=== PATIENT | female | born 1930 | race Caucasian/White ===

== ENCOUNTER 2017-07-29 19:34 | Inpatient (IN) | payer MEDICARE ==
[2017-07-29] MEDS ORDERED: Bacitracin Zinc 1 Packet ONE (21:53)
[2017-07-29] MEDS ORDERED: Acetaminophen 500 MG TAB ONE (21:53)
[2017-07-30] MEDS ORDERED: Ondansetron ODT 4 MG TAB SL PRN (00:15)
[2017-07-30] MEDS ORDERED: Acetaminophen 325 MG TAB PO PRN (00:15)
[2017-07-30] MEDS ORDERED: Ondansetron HCl/PF 4 MG/2 ML Vial IVP PRN (00:15)
[2017-07-30 01:20] VITALS: BMI 28.7
[2017-07-30] MEDS: Enoxaparin Sodium 30 MG/0.3 ML SYRINGE SC SCH (11:04)
--- NOTE | 2017-07-30 11:58 | ULT ---
RIGHT GOING ULTRASOUND INCLUDING VASCULAR DUPLEX WITH COLOR AND SPECTRAL DOPPLER IMAGING: HISTORY: An 86-year-old female, to evaluate for pseudoaneurysm. FINDINGS: The right groin is evaluated. There is no evidence for pseudoaneurysm. There is no evidence for si gnificant hematoma. IMPRESSION: No right groin pseudoaneurysm. POS: EDITH
[2017-07-30] MEDS ORDERED: Aspirin 81 mg Enteric Coated Tablet PO SCH (12:45)
[2017-07-30] MEDS ORDERED: Gabapentin 300 MG CAP PO SCH (13:00)
[2017-07-30] MEDS ORDERED: Levothyroxine Sodium 75 MCG TAB PO SCH (13:00)
[2017-07-30] MEDS ORDERED: Citalopram 20 MG TAB PO SCH (13:00)
[2017-07-30] MEDS ORDERED: Furosemide 20 MG TAB PO SCH (13:00)
[2017-07-30] MEDS ORDERED: Valsartan 80 MG TAB PO SCH (13:00)
[2017-07-30] MEDS ORDERED: Carvedilol 6.25 MG TAB PO SCH (13:00)
[2017-07-30] MEDS ORDERED: Clopidogrel Bisulfate 75 MG TAB PO SCH (13:00)
[2017-07-30 13:31] LABS: #Basophils 0.1 thou/uL (0.0-0.2); #Eosinphils 0.5 thou/uL (0.0-0.7); #Lymphocytes 1.8 thou/uL (1.20-3.40); #Monocytes 1.2 thou/uL (0.11-0.59); #Neutrophils 7.1 thou/uL (1.40-6.50); %Eosinophils 4.6 % (0.0-10.0); %Monocytes 11.4 % (0.0-10.0); Hematocrit 35.5 % (36.0-47.0); Mean Platelet Volume 6.8 fL (7.4-10.4); Red Blood Cell (RBC) Count 3.87 mill/uL (4.20-5.40); White Blood Cell (WBC) Count 10.7 thou/uL (4.8-10.8)
[2017-07-30 14:05] LABS: ALT (SGPT) 14 U/L (8-55); AST (SGOT) 19 U/L (5-34); Alkaline Phosphatase 72 U/L (40-150); Anion Gap 13 mmol/L (10-20); BUN (Urea Nitrogen) 23 mg/dL (9.8-20.1); Bilirubin, Total 0.5 mg/dL (0.2-1.2); Calc. Creatinine Clearance 43 mL/min (70-130); Calcium 9.4 mg/dL (7.8-10.44); Carbon Dioxide 26 mmol/L (23-31); Chloride 98 mmol/L (98-107); Estimated GFR-MDRD 50; Globulin 3.5 g/dL (2.4-3.5); Protein, Total 7.1 g/dL (6.0-8.3)
--- NOTE | 2017-07-30 14:58 | PRG ---
DATE OF SERVICE: 07/30/2017 SUBJECTIVE: Lyssa Ramirez is a very sweet patient I have been following for asthma. She is laurie ntified as having significant peripheral vascular disease. She subsequently has been admitted to the telemetry unit. She has a poorly healing ulcer on her heel. PHYSICAL EXAMINATION: VITAL SIGNS: She is afebrile, heart rate 72, respiratory rate is 18, oximetry is 95, blood pressure is fluctuating between 160 systolic and 193 systolic today. LUNGS: Completely clear. CARDIOVASCULAR: Regular rhythm. ABDOMEN: Soft. IMPRESSION: Severe peripheral vascular disease. I will plan to discuss the above with Dr. Richey. The addition of Trental, even though an old treatment may be helpful with her microvascular circula tion ? She needs to be on inhaled steroids while she is here. I will be happy to follow along with the ot er physicians caring for him.
[2017-07-30] MEDS: Atorvastatin Calcium 20 MG TAB PO SCH (20:14)
[2017-07-30] MEDS: Amitriptyline HCl 25 MG TAB PO SCH (20:14)
[2017-07-30] MEDS: Budesonide 0.5 MG/2 ML NEB INH SCH (20:15)
[2017-07-30] MEDS: Valsartan 80 MG TAB PO SCH (20:15)
[2017-07-30] MEDS: Gabapentin 300 MG CAP PO SCH (20:15)
[2017-07-30] MEDS: Carvedilol 6.25 MG TAB PO SCH (20:19)
--- NOTE | 2017-07-30 22:15 | HP ---
DATE OF ADMISSION: 07/30/2017 REASON FOR ADMISSION: Necrotic left toe nonhealing ulcer and PVD. PRIMARY AGRICULTURAL AND FORESTRY SUPERVISOR: Christina Garay M.D. HISTORY OF PRESENT ILLNESS: Ms. Ramirez is a very pleasant 86-year-old black female who comes to the hospital for left leg pain. She was evaluated in the ER and was found to have a new ischemic l esion on her left second toe, so she was admitted for further evaluation and care. She recently had an intervention performed on her lower left common femoral artery. She has severe peripheral vascu lar disease in left leg. She has an occluded SFA proximally at the level of the hip and it reconsti tutes from just very small collateral circulation all the way down to the foot with just one vessel runoff. We actually intervened on her common femoral, we did laser atherectomy and balloon angiopla sty with very good results, it went from 80% to 90% down to about 20%. She had a very calcified les ion, this was about a few days ago and she did very well. She had no complications and this is a ne w finding since. She states that her wound is actually healing better. Since we did the procedure, she has been going to wound care and is much better. PAST MEDICAL HISTORY: 1. History of nonischemic cardiomyopathy, EF was at 20% to 25% and at one point, she received an AI CD and eventually has improved to about 50% to 55% last evaluation on 12/2016. 2. Chronic diastolic heart failure. 3. Coronary artery disease with stent placement in the past. 4. Hyperlipidemia. 5. Hypertension. 6. History of peripheral vascular disease. 7. History of bypass in 1993 x6. 8. Appendectomy. 9. Hysterectomy. 10. Osteoarthritis. 11. Hypothyroidism. OUTPATIENT MEDICATIONS: Reviewed. 1. Lasix 20 mg. 2. Lipitor 20 mg. 3. Amitriptyline. 4. Gabapentin. 5. Valsartan 80 mg p.o. b.i.d. 6. Omeprazole. 7. Levothyroxine 75 mcg a day. 8. Imdur 60 mg a day. 9. Celexa 40 mg a day. 10. Coreg 6.25 mg b.i.d. 11. Aspirin 81 a day. 12. Plavix 75 mg a day. ALLERGIES: No known drug allergies. SOCIAL HISTORY: No alcohol, tobacco or drugs. FAMILY HISTORY: Noncontributory. REVIEW OF SYSTEMS: Twelve-point review of systems was done and is all negative unless stated in the history of present illness. PHYSICAL EXAMINATION: VITAL SIGNS: Temperature 98.4, pulse 72, respiratory rate 18, satting 96% on room air, and blood pr essure 193/78. GENERAL: Awake, alert, oriented x3, in no distress. HEENT: Normocephalic, atraumatic. NECK: Supple. LUNGS: Clear. CARDIOVASCULAR: S1, S2, no S3 or S4. ABDOMEN: Soft. Positive bowel sounds. EXTREMITIES: No edema. SKIN: Cold and dry with delayed capillary refill, cannot feel any pulses on the left leg, but this is similar to what it felt like a week ago before the procedure. There is a small necrotic area und er the nail of the hallux on the left, which is a new spot. On the second toe on the same leg on th e left, there is a necrotic spot that was there before the procedure. This one has not progressed. ASSESSMENT AND PLAN: 1. Severe peripheral vascular disease. 2. Nonhealing ulcer. 3. New ischemic area on the foot on the first great toe. PLAN: 1. We will observe overnight if her toe looks the same as it did this morning. We will plan on sen ding her home tomorrow. I discussed the case also with Dr. Escobar and we will start Trental today to see if this helps. Otherwise, I reviewed the films with Dr. Luna and he agrees with her very few surgical options for her vascular disease and hopefully she will be able to heal enough to not lose her foot as amputation may be deadly for her as there is may not be enough blood flow to heal any rodrigues rgical wound. 2. We will continue home medications. 3. FULL CODE. 4. Lovenox subcu for deep venous thrombosis prophylaxis. We will continue to follow daily. Most likely home tomorrow.
[2017-07-31 04:59] LABS: #Basophils 0.1 thou/uL (0.0-0.2); #Eosinphils 0.5 thou/uL (0.0-0.7); #Monocytes 1.1 thou/uL (0.11-0.59); #Neutrophils 5.6 thou/uL (1.40-6.50); %Basophils 1.1 % (0.0-1.0); %Eosinophils 5.4 % (0.0-10.0); %Lymphocytes 21.2 % (21.0-51.0); %Monocytes 11.4 % (0.0-10.0); Mean Platelet Volume 6.8 fL (7.4-10.4); Red Blood Cell (RBC) Count 3.68 mill/uL (4.20-5.40); White Blood Cell (WBC) Count 9.2 thou/uL (4.8-10.8)
[2017-07-31 05:20] LABS: Anion Gap 11 mmol/L (10-20); BUN (Urea Nitrogen) 21 mg/dL (9.8-20.1); Calc. Creatinine Clearance 38 mL/min (70-130); Calcium 9.3 mg/dL (7.8-10.44); Carbon Dioxide 28 mmol/L (23-31); Chloride 98 mmol/L (98-107); Estimated GFR-MDRD 44
[2017-07-31] MEDS: Levothyroxine Sodium 75 MCG TAB PO SCH (05:45)
[2017-07-31] MEDS ORDERED: Levothyroxine Sodium 75 MCG TAB PO SCH (06:00)
[2017-07-31] MEDS: Budesonide 0.5 MG/2 ML NEB INH SCH ×2 (08:44→19:06)
--- NOTE | 2017-07-31 16:25 | PRG ---
DATE OF SERVICE: 07/31/2017 SUBJECTIVE: Ms. Ramirez is doing well. She is tentatively scheduled to go home today. OBJECTIVE: VITAL SIGNS: Blood pressure high today is 160/70, she is 143/65, she is afebrile, heart rate 67, res piratory rate 16, oximetry is 94-97. LUNGS: Clear. She is not wheezing. IMPRESSION: 1. Asthma, clinically stable. 2. Peripheral vascular disease. To be followed with Dr. Richey. I will be happy to follow her with her as an outpatient.
[2017-07-31] MEDS ORDERED: traMADol HCl 50 MG TAB PO PRN (17:27)
[2017-07-31] MEDS ORDERED: Acetaminophen 325 MG TAB PO PRN (17:27)
[2017-07-31] MEDS ORDERED: Fentanyl 100 MCG/2 ML VIAL SLOW IVP SCH (17:30)
--- NOTE | 2017-07-31 17:31 | PDOC.CTH ---
Cardiology Progress Note - Subjective She is doing well. She continues to have leg pain at rest but is not changed from what it has been in the last few months. She usually uses ibuprofen at home but has not received any here. - Objective Vital Signs Temp Pulse Resp BP Pulse Ox 07/31/17 08:44 70 20 94 L 07/31/17 08:00 97.5 F L 67 16 160/70 H 97 Admit Weight 157 lb Weight 157 lb 07/30/17 07/31/17 08/01/17 06:59 06:59 06:59 Intake Total 610 Output Total 2100 Balance -1490 - Physical Examination General/Neuro: alert & oriented x3, NAD Neck: no JVD present Lungs: CTA, unlabored respirations Heart: RRR Abdomen: NT/ND Extremities: other: (no edema) - Telemetry Telemetry Rhythm: NSR, a paced. - Labs Result Diagrams: 07/31/17 04:20 07/31/17 04:20 - Assessment/Plan 1. Ischemis right leg 2. Severe PVD, no good options to revascularize. 3. Non healing ulcer on left heel. 4. S/P AICD 5. Chronic diastolic dysfunction. 6. Hx of ischemic CM EF normal now at 50-55% PLAN: - Pain control with IV fentanyl and hopefully tramadol and acetaminophen will suffice. - No progression of her necrosis around her left great toe, looks the same as yesterday. - Will give a small fluid bolus as her creatinine did increase overnight with diuresis. - Likely home tomorrow.
[2017-07-31] MEDS ORDERED: Sodium Chloride 0.9% 1,000 ML IV SCH (17:45)
[2017-07-31] MEDS: Valsartan 80 MG TAB PO SCH ×2 (20:59→23:33)
[2017-07-31] MEDS: Atorvastatin Calcium 20 MG TAB PO SCH (21:00)
[2017-07-31] MEDS: Amitriptyline HCl 25 MG TAB PO SCH (21:00)
[2017-07-31] MEDS: Aspirin 81 mg Enteric Coated Tablet PO SCH (21:05)
[2017-07-31] MEDS: Enoxaparin Sodium 30 MG/0.3 ML SYRINGE SC SCH (21:06)
[2017-07-31] MEDS: Citalopram 20 MG TAB PO SCH (21:06)
[2017-07-31] MEDS: Clopidogrel Bisulfate 75 MG TAB PO SCH (21:06)
[2017-07-31] MEDS: Furosemide 20 MG TAB PO SCH (21:07)
[2017-07-31] MEDS: Gabapentin 300 MG CAP PO SCH ×2 (21:08→21:09)
[2017-07-31] MEDS: Carvedilol 6.25 MG TAB PO SCH ×2 (21:08→21:09)
[2017-08-01] MEDS: Levothyroxine Sodium 75 MCG TAB PO SCH (06:07)
[2017-08-01] MEDS: Budesonide 0.5 MG/2 ML NEB INH SCH (07:49)
[2017-08-01] MEDS ORDERED: Furosemide 40 MG/4 ML VIAL SLOW IVP SCH (08:30)
--- NOTE | 2017-08-01 08:41 | PRG ---
DATE OF SERVICE: 08/01/2017 HISTORY: Ms. Ramirez is doing okay this morning. She says she is not short of breath, but looks like her respiratory rate is a little high. She looks mildly dyspneic. PHYSICAL EXAMINATION: VITAL SIGNS: Her blood pressure is elevated, it was 180/75 followed by 164/71, pulse 66. LUNGS: Mild wheezing, expiratory. CARDIAC: Normal S1 and S2. ABDOMEN: Soft, nontender. EXTREMITIES: She has vascular insufficiency as outlined above. ASSESSMENT: 1. Diastolic heart failure, looks volume overloaded. 2. Hypertension. PLAN: 1. Stop intravenous fluid. 2. Give her a single dose of intravenous Lasix. 3. Probably home later today. 4. Valsartan dose was increased.
[2017-08-01] MEDS: Aspirin 81 mg Enteric Coated Tablet PO SCH (09:28)
[2017-08-01] MEDS: Gabapentin 300 MG CAP PO SCH (09:28)
[2017-08-01] MEDS: Citalopram 20 MG TAB PO SCH (09:28)
[2017-08-01] MEDS: Furosemide 20 MG TAB PO SCH (09:29)
[2017-08-01] MEDS: Carvedilol 6.25 MG TAB PO SCH (09:29)
[2017-08-01] MEDS: Clopidogrel Bisulfate 75 MG TAB PO SCH (09:29)
[2017-08-01] MEDS: Valsartan 80 MG TAB PO SCH (09:29)
[2017-08-01] MEDS: Enoxaparin Sodium 30 MG/0.3 ML SYRINGE SC SCH (09:30)
--- NOTE | 2017-08-01 10:15 | PRG ---
DATE OF SERVICE: 08/01/2017 Ms. Ramirez is scheduled to go home today. She has no new complaints. She has no new wound issue s. Her vital signs have been stable. Her blood pressures are still intermittently mildly elevated up to 183/75, last night 146/68, this morning 164/71. Lungs remained clear. Asthma is not active. She i s stable for discharge.
[2017-08-01 10:44] LABS: Anion Gap 9 mmol/L (10-20); BUN (Urea Nitrogen) 23 mg/dL (9.8-20.1); Calc. Creatinine Clearance 41 mL/min (70-130); Calcium 9.2 mg/dL (7.8-10.44); Carbon Dioxide 27 mmol/L (23-31); Chloride 102 mmol/L (98-107); Estimated GFR-MDRD 48
[2017-08-01 13:10] VITALS: BP 104/53; TEMP 97.6
--- NOTE | 2017-08-01 15:17 | DIS ---
DATE OF ADMISSION: 07/30/2017 DATE OF DISCHARGE: 08/01/2017 DISCHARGING PHYSICIAN: Terry Richey M.D. PRIMARY DIAGNOSES: 1. Ischemic right leg/first and second toes. 2. Nonhealing ulcer. 3. Severe peripheral vascular disease. 4. Status post automated implantable cardioverter-defibrillator. 5. Diastolic heart failure. SUMMARY: Ms. Ramirez is a very pleasant 86-year-old white female, who comes to the hospital for f oot pain. She had intervention on her common femoral. She had balloon angioplasty. She has an occl uded SFA with just collateral flow down the leg. She came in as she noticed a purple spot on her fir st toe on the left leg where the intervention was done. She also has a nonhealing ulcer on her heel in that leg. The ulcer actually is healing better since the procedure was done a week ago and this n ew spot on the big toe is new. She has a chronic spot on the second toe, which is the same as it has been. We started Trental. She received a few doses of Lasix and had to give a little bit of fluid back. Her creatinine is much better and she will be discharged home today in a stable condition. We called wound care as well and they have been taking care of the wound. She has no complaints. Her pain is actually very well controlled with the tramadol and the Tylenol. DISCHARGE MEDICATIONS: 1. Tylenol p.r.n. 2. Amitriptyline. 3. Aspirin 81 daily. 4. Atorvastatin 20 mg at bedtime. 5. Pulmicort inhalation. 6. Carvedilol 6.25 b.i.d. 7. Celexa. 8. Plavix. 9. Lasix 20 mg a day and p.r.n. 40 mg for swelling and edema. 10. Gabapentin 600 mg p.o. b.i.d. 11. Imdur 60 mg a day. 12. Levothyroxine 75 mcg a day. 13. Protonix 40 mg a day. 14. Valsartan 160 mg b.i.d. NEW MEDICATIONS: 1. Trental/pentoxifylline 400 mg p.o. t.i.d. 2. Tramadol q.6 hours p.r.n. pain. FOLLOWUP APPOINTMENTS: Dr. Garay as previously scheduled. She will send me pictures of her toe to make sure that the ischemia is not getting worse. There are very few surgical options. I discussed the case with Dr. Luna as well and there is no good surgical option. She may need amputation if the ischemia continues and she may not be a good candidate for t his, as she probably will not heal and it may be too much for her. I spoke with her daughter about t his, and instead of going in the amputation route, she may just want to do hospice care at that point , but we will make decisions depending on clinical evolution. Thirty minutes were spent at bedside on discharge.
== END 2017-08-01 15:52 | disposition home or self-care (01) | DRG 300 ==
LOC: ERS 19:34 → 2NO 20:48
PROVIDERS: ADMIT Internal Medicine Cardiovascular Disease; ATTEND Internal Medicine Cardiovascular Disease
DX: I70.234 Atherosclerosis of native arteries of right leg with ulceration of heel and midfoot (principal); I50.32 Chronic diastolic (congestive) heart failure; I42.9 Cardiomyopathy, unspecified; I11.0 Hypertensive heart disease with heart failure; I70.235 Atherosclerosis of native arteries of right leg with ulceration of other part of foot; I25.10 Atherosclerotic heart disease of native coronary artery without angina pectoris; Z95.810 Presence of automatic (implantable) cardiac defibrillator; E03.9 Hypothyroidism, unspecified; E78.5 Hyperlipidemia, unspecified; J45.909 Unspecified asthma, uncomplicated; M19.90 Unspecified osteoarthritis, unspecified site
CPT/HCPCS: 36415; 76700; 80048; 80053; 83880; 85025; 94640; A4216; J1650; J1940; J7620; J7626

== ENCOUNTER 2017-08-16 12:33 | Inpatient (IN) | payer MEDICARE ==
[2017-08-16] MEDS ORDERED: CEFAZOLIN/Water 2 GM/20 ML SYRINGE ONE (13:29)
[2017-08-16] MEDS ORDERED: Albuterol Sulfate 2.5 mg/3 ml Neb NEB SCH (13:45)
[2017-08-16 13:47] LABS: #Basophils 0.1 thou/uL (0.0-0.2); #Eosinphils 0.4 thou/uL (0.0-0.7); #Lymphocytes 1.6 thou/uL (1.20-3.40); #Monocytes 0.9 thou/uL (0.11-0.59); #Neutrophils 7.6 thou/uL (1.40-6.50); %Basophils 0.7 % (0.0-1.0); %Eosinophils 3.6 % (0.0-10.0); %Lymphocytes 15.4 % (21.0-51.0); %Monocytes 8.9 % (0.0-10.0); Hematocrit 33.2 % (36.0-47.0); Mean Platelet Volume 6.4 fL (7.4-10.4); Red Blood Cell (RBC) Count 3.69 mill/uL (4.20-5.40); White Blood Cell (WBC) Count 10.6 thou/uL (4.8-10.8)
[2017-08-16] MEDS ORDERED: Albuterol Sulfate 2.5 mg/3 ml Neb ONE (13:48)
[2017-08-16 13:53] LABS: Prothrombin Time 14.2 SEC (12.0-14.7)
[2017-08-16 14:04] LABS: Anion Gap 13 mmol/L (10-20); BUN (Urea Nitrogen) 19 mg/dL (9.8-20.1); Calc. Creatinine Clearance 42 mL/min (70-130); Carbon Dioxide 28 mmol/L (23-31); Chloride 96 mmol/L (98-107); Estimated GFR-MDRD 49
[2017-08-16] MEDS ORDERED: Midazolam HCl 2 mg/2 ml Vial ONE (14:19)
[2017-08-16] MEDS ORDERED: Fentanyl 100 MCG/2 ML VIAL ONE ×2 (14:19→15:04)
[2017-08-16] MEDS ORDERED: Dexamethasone 4 mg/ml Vial ONE (14:20)
[2017-08-16] MEDS ORDERED: Ondansetron HCl/PF 4 MG/2 ML Vial ONE (15:12)
[2017-08-16] MEDS ORDERED: PHENYLEPHRINE-NS 100 MCG/ML 10 ML SYRINGE ONE (15:12)
[2017-08-16] MEDS ORDERED: Propofol 200 MG/20 ML VIAL ONE (15:12)
[2017-08-16] MEDS ORDERED: ePHEDrine/0.9% NaCl/PF SYRINGE 50 mg/10 ml ONE (15:12)
[2017-08-16] MEDS ORDERED: Lidocaine 1% PF 5 ML VIAL ONE (15:12)
[2017-08-16] MEDS ORDERED: Zolpidem Tartrate 5 MG TAB PO PRN (15:22)
[2017-08-16] MEDS ORDERED: Ropivacaine HCl/PF 250 ML in Premix Bag 1 BAG NERVE BLCK SCH (15:22)
[2017-08-16] MEDS ORDERED: HYDROcodone/Acetaminophen 5/325 mg Tablet PO PRN ×2 (15:22)
[2017-08-16] MEDS ORDERED: Promethazine HCl 25 MG/ML VIAL IM PRN ×2 (15:22→17:26)
[2017-08-16] MEDS ORDERED: Ondansetron HCl/PF 4 MG/2 ML Vial IVP PRN ×3 (15:22→17:45)
[2017-08-16] MEDS ORDERED: Ketorolac Tromethamine 30 MG/ML VIAL IVP PRN (15:22)
[2017-08-16] MEDS ORDERED: traMADol HCl 50 MG TAB PO PRN ×3 (15:22→17:45)
[2017-08-16] MEDS ORDERED: Fentanyl 100 MCG/2 ML VIAL SLOW IVP PRN (15:24)
[2017-08-16] MEDS ORDERED: Ropivacaine 0.5% HCl/PF (150 MG/30 ML VIAL) ONE (15:57)
[2017-08-16] MEDS ORDERED: Ropivacaine 0.2% HCl/PF (40 MG/20 ML VIAL) ONE (15:57)
[2017-08-16] MEDS ORDERED: Promethazine HCl 25 MG/ML VIAL SLOW IVP PRN (17:26)
[2017-08-16] MEDS ORDERED: Morphine Sulfate 2 MG/ML SYRINGE SLOW IVP PRN (17:26)
[2017-08-16] MEDS ORDERED: Meperidine HCl/PF 25 MG/ML VIAL SLOW IVP PRN (17:26)
[2017-08-16] MEDS ORDERED: Milk Of Magnesia 30 ML UDCUP PO PRN (17:45)
--- NOTE | 2017-08-16 19:02 | OP ---
DATE OF OPERATION: 08/16/2017 PREOPERATIVE DIAGNOSIS: Ischemic rest pain of the left leg with nonreconstructable peripheral vascul ar disease. POSTOPERATIVE DIAGNOSIS: Ischemic rest pain of the left leg with nonreconstructable peripheral vascu lar disease. PROCEDURE: Left evbqp-eah-aryc amputation. SURGEON: Haja Burkett M.D. ANESTHESIA: General endotracheal. ESTIMATED BLOOD LOSS: 200 mL PROCEDURE IN DETAIL: After consent was obtained, the patient was brought to the operating room and p laced in the supine position on the operating room table. Appropriate anesthetic monitor was placed and general endotracheal anesthesia induced. Left leg was prepped and draped in usual sterile fashio n. Fish mouth incision was marked on the skin for an above knee amputation. Skin incision was made and dissection through the fascia obtained with electrocautery. Her previous femoral popliteal bypas s graft was ligated and oversewn proximally with 3-0 Prolene suture. Superficial femoral artery and popliteal vein were divided between ties. The remainder of the amputation was completed with electro cautery. The femur was divided with a Gigli saw. Wound was copiously irrigated. Hemostasis was ens ured. Femoral nerve was stripped and tied proximally. Fascia was reapproximated with 0 Vicryl sutur e. A running #2 layer was then placed in the subcu and skin closed with clips. A fluff dressing was applied. The patient tolerated the procedure well, was awakened, extubated, and transferred to cesar very room in stable condition.
[2017-08-16] MEDS: Amitriptyline HCl 25 MG TAB PO SCH (20:38)
[2017-08-16] MEDS: Carvedilol 6.25 MG TAB PO SCH (20:38)
[2017-08-16] MEDS: Valsartan 80 MG TAB PO SCH (20:38)
[2017-08-16] MEDS: Gabapentin 300 MG CAP PO SCH (20:39)
[2017-08-16] MEDS: CEFAZOLIN/Water 2 GM/20 ML SYRINGE SLOW IVP SCH (22:12)
[2017-08-17 02:20] VITALS: BMI 25.9
[2017-08-17] MEDS: Levothyroxine Sodium 75 MCG TAB PO SCH (05:54)
[2017-08-17] MEDS: CEFAZOLIN/Water 2 GM/20 ML SYRINGE SLOW IVP SCH ×3 (05:55→21:21)
[2017-08-17] MEDS: Mometasone/Formoterol 120 PUFF INHALER INH SCH ×2 (07:04→18:18)
[2017-08-17] MEDS: predniSONE 5 MG TAB PO SCH (08:35)
[2017-08-17] MEDS: Gabapentin 300 MG CAP PO SCH ×2 (08:35→21:20)
[2017-08-17] MEDS: Valsartan 80 MG TAB PO SCH ×2 (08:35→21:19)
[2017-08-17] MEDS: Carvedilol 6.25 MG TAB PO SCH ×2 (08:35→21:20)
[2017-08-17] MEDS: Citalopram 20 MG TAB PO SCH (08:35)
[2017-08-17] MEDS: Aspirin 81 mg Enteric Coated Tablet PO SCH (08:35)
[2017-08-17] MEDS: Atorvastatin Calcium 40 MG TAB PO SCH (08:35)
[2017-08-17] MEDS: Furosemide 20 MG TAB PO SCH (08:35)
--- NOTE | 2017-08-17 15:51 | PRG ---
DATE OF SERVICE: 08/17/2017 Lyssa Ramirez's events have been reviewed. She is surprisingly in good spirits, sitting at side of the bed in a bedside chair after amputation. She denies shortness of breath. Her lungs are clear. IMPRESSION: 1. 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 2. Asthma, clinically stable. KAREND
[2017-08-17] MEDS: Budesonide 0.5 MG/2 ML NEB INH SCH (18:15)
[2017-08-17] MEDS: Amitriptyline HCl 25 MG TAB PO SCH (21:20)
[2017-08-18] MEDS: Levothyroxine Sodium 75 MCG TAB PO SCH (05:34)
[2017-08-18] MEDS: Budesonide 0.5 MG/2 ML NEB INH SCH ×2 (07:57→18:23)
[2017-08-18] MEDS: Mometasone/Formoterol 120 PUFF INHALER INH SCH ×2 (07:57→18:24)
[2017-08-18] MEDS: Gabapentin 300 MG CAP PO SCH ×2 (09:05→20:41)
[2017-08-18] MEDS: Atorvastatin Calcium 40 MG TAB PO SCH (09:05)
[2017-08-18] MEDS: Citalopram 20 MG TAB PO SCH (09:06)
[2017-08-18] MEDS: predniSONE 5 MG TAB PO SCH (09:06)
[2017-08-18] MEDS: Aspirin 81 mg Enteric Coated Tablet PO SCH (09:06)
[2017-08-18] MEDS: Carvedilol 6.25 MG TAB PO SCH ×2 (09:06→20:46)
[2017-08-18] MEDS: Furosemide 20 MG TAB PO SCH (09:06)
[2017-08-18] MEDS: Valsartan 80 MG TAB PO SCH ×2 (09:07→20:46)
--- NOTE | 2017-08-18 20:03 | PRG ---
DATE OF SERVICE: 08/18/2017 SUBJECTIVE: Lyssa Ramirez is complaining of left leg pain (where her left leg was). She has a p ain pump, she says that leaves her discomfort. OBJECTIVE: VITAL SIGNS: She is afebrile, heart rate is 65, respiratory rate is 16. Oximetry is 95. She is not wheezing. Her blood pressure is 102/63. IMPRESSION: 1. Status post thigh amputation of left lower extremity for peripheral vascular disease. 2. Asthma, clinically stable. PLAN: Continue supportive care. Her spirits are better than I would have expected.
[2017-08-18] MEDS: Amitriptyline HCl 25 MG TAB PO SCH (20:40)
[2017-08-19] MEDS: Levothyroxine Sodium 75 MCG TAB PO SCH (05:40)
[2017-08-19] MEDS: Mometasone/Formoterol 120 PUFF INHALER INH SCH (06:54)
[2017-08-19] MEDS: Budesonide 0.5 MG/2 ML NEB INH SCH (06:55)
[2017-08-19] MEDS: Carvedilol 6.25 MG TAB PO SCH (09:04)
[2017-08-19] MEDS: Furosemide 20 MG TAB PO SCH (09:05)
[2017-08-19] MEDS: Gabapentin 300 MG CAP PO SCH (09:05)
[2017-08-19] MEDS: predniSONE 5 MG TAB PO SCH (09:05)
[2017-08-19] MEDS: Aspirin 81 mg Enteric Coated Tablet PO SCH (09:05)
[2017-08-19] MEDS: Citalopram 20 MG TAB PO SCH (09:05)
[2017-08-19] MEDS: Valsartan 80 MG TAB PO SCH (09:06)
[2017-08-19] MEDS: Atorvastatin Calcium 40 MG TAB PO SCH (09:06)
[2017-08-19] MEDS ORDERED: Ropivacaine 0.2% 550 ML 550 ML NERVE BLCK SCH (10:30)
[2017-08-19 12:36] VITALS: TEMP 98.6
--- NOTE | 2017-08-19 13:27 | PQF ---
REFUGIO CRAIG CHARLES H MD [id number] SURG A- [id number] CLINICAL DOCUMENTATION IMPROVEMENT CLARIFICATION FORM: ICD-10 Updated PLEASE DO AN ADDENDUM TO THE PROGRESS NOTE WITH ANY DOCUMENTATION UPDATES OR ADDITIONS AND CARRY THROUGH TO DC SUMMARY. THANK YOU. DATE: 08-19-17 ATTN: DR. MARSHA CARTER Please exercise your independent, professional judgment in responding to the clarification form. Clinical indicators are provided on the bottom of this form for your review Please check appropriate box(s): [ ] High (proximal) Above Knee Amputation [ ] Mid Above Knee Amputation [ ] Low (distal) Above Knee Amputation [ ] Other diagnosis [ ] Unable to determine CLINICAL INDICATORS - SIGNS/ SYMPTOMS / LABS OP NOTE: ISCHEMIC REST PAIN OF THE LEFT LEG WITH NONRECONSTRUCTIBLE PERIPHERAL VASCULAR DX OP NOTE - LEFT JREBF-MZR-TLHD AMPUTATION RISK FACTORS H&P: PVD WITH GANGRENE LEFT LEG TREATMENT OP NOTE - LEFT HIAEE-SXM-QIRD AMPUTATION THANK YOU, CHERYLE (This form is maintained as a part of the permanent medical record) 2014 [employer]. All Rights Reserved Cheryle Cade RN, BS [email or web address] Cell [facility] MED[facility] CENTERMikayla
[2017-08-19 14:10] VITALS: BP 108/58
--- NOTE | 2017-08-20 14:37 | DIS ---
DATE OF ADMISSION: 08/16/2017 DATE OF DISCHARGE: 08/19/2017 DIAGNOSES: Peripheral vascular disease with left leg nonreconstructable vascular disease and severe rest pain/ulceration/gangrene. HISTORY OF HOSPITAL STAY: Ms. Ramirez was admitted and underwent a left laszh-xjh-lhvl amputation . She did well postoperatively. She was transferred to rehab. Medications at home were unchanged.
== END 2017-08-19 14:50 | DRG 240 ==
LOC: SURG A 12:33
PROVIDERS: ADMIT Thoracic Surgery (Cardiothoracic Vascular Surgery); ATTEND Thoracic Surgery (Cardiothoracic Vascular Surgery)
PROC: 0Y6D0Z3 Detachment at Left Upper Leg, Low, Open Approach (ICD-10-PCS; principal; 2017-08-16)
PROC: 3E0T3BZ Introduction of Anesthetic Agent into Peripheral Nerves and Plexi, Percutaneous Approach (ICD-10-PCS; 2017-08-16)
DX: I70.262 Atherosclerosis of native arteries of extremities with gangrene, left leg (principal); L97.429 Non-pressure chronic ulcer of left heel and midfoot with unspecified severity; I11.0 Hypertensive heart disease with heart failure; I50.32 Chronic diastolic (congestive) heart failure; J45.909 Unspecified asthma, uncomplicated; I99.8 Other disorder of circulatory system; E78.2 Mixed hyperlipidemia; E03.9 Hypothyroidism, unspecified; Z95.1 Presence of aortocoronary bypass graft
CPT/HCPCS: 80048; 85025; 85610; 88307; 88311; 93005; 93010; 94640; A4216; A4306; G8978-GP-CL; G8979-GP-CJ; G8987-GO-CK; G8988-GO-CI; J1100; J2001; J2250; J2405; J2704; J2795; J3010; J7611; J7620; J7626

== ENCOUNTER 2017-11-13 10:13 | Outpatient (CLI) | payer MEDICARE ==
--- NOTE | 2017-11-13 14:31 | RAD ---
TWO VIEWS LEFT FEMUR: 11/13/2017 HISTORY: Evaluate for osteomyelitis. COMPARISON: None. FINDINGS: The patient is status post amputation within the proximal left femoral shaft. There is adjacent heterotopic bone at the distal aspect of the postoperative site. There is a subtle area of skin irregularity involving the soft tissues distal to the remaining femora l shaft, which may represent a small skin/stump ulceration. No obvious bone destruction. If there i s clinical concern for osteomyelitis, MRI would be required. There is atherosclerotic calcification within the medial imaged left thigh. IMPRESSION: Status post amputation of the left lower extremity, at the level of the proximal left femoral shaft. No obvious bone destruction. There are findings suggesting a subtle skin ulceration involving the s tump, just distal to the postoperative femur. If there is high clinical concern for osteomyelitis, M RI is required. POS: DAVID
--- NOTE | 2017-11-13 17:33 | HP ---
DATE OF SERVICE: 11/13/2017 HISTORY OF PRESENT ILLNESS: Ms. Lyssa Ramirez is a very pleasant 86-year- old accompanied by her daughter, Ms. Maryam Mccabe, who presents to the [facility] Center for evaluation of an ulceration of her left iryxe-qpf-paeh amputation stump. The patient states that she underwent left jzflj-ymm-qsck amputation on 08/16/[address] Haja Burkett. She states that she subsequently fell in early September of this year. She states that one suture was placed for closure of the wound resulting from the fall. At this time, arrangements were made for dressing changes with the assistance of Home Health. The patient and her daughter state that later the suture was discontinued; however, the wound was still present when the suture was discontinued. The patient states that she fell after her surgical wound had almost completely healed. The patient was referred to the Wound Center by Dr. Sharlene Mg, specifically for evaluation for negative pressure therapy for healing of the left AKA stump wound. PAST MEDICAL HISTORY: 1. Nonischemic cardiomyopathy. 2. Chronic diastolic heart failure. 3. Coronary artery disease. 4. Hypertension. 5. Peripheral vascular disease. 6. Osteoarthritis. 7. Hypothyroidism. PAST SURGICAL HISTORY: 1. Coronary artery bypass grafting. 2. Hysterectomy. 3. AICD placement. 4. Left tkexc-iix-jxre amputation on 08/16/[address] Haja Burkett. MEDICATIONS: 1. Diovan. 2. Coreg. 3. Citalopram. 4. Synthroid. 5. Amitriptyline. 6. Gabapentin. 7. Aspirin 81 mg. 8. Imdur. 9. Lasix. 10. Plavix. 11. Atorvastatin. ALLERGIES: No known diagnosed allergies. SOCIAL HISTORY: Negative for tobacco or ETOH use. FAMILY HISTORY: Significant for diabetes mellitus. The patient states that her daughter was diagnosed with diabetes mellitus. Family history is also significant for coronary artery disease. The patient states that her father, uncle, and a cousin were all diagnosed with coronary artery disease. PHYSICAL EXAMINATION: VITAL SIGNS: Temperature 98.0, pulse 68, respirations 17, blood pressure 124/ 61. GENERAL: An 86-year-old female sitting on wheelchair in examination room in no acute distress. HEENT: Normocephalic, atraumatic. NECK: No nuchal rigidity. CHEST: Clear to auscultation. CARDIOVASCULAR: Regular rate and rhythm. ABDOMEN: Soft. EXTREMITIES: An ulceration of the left otqkf-wje-luwk amputation stump is present. Granulation tissue is present within the wound margins. Nonviable tissue present within the wound margins was debrided with an excisional full- thickness debridement. No purulent drainage is associated with the wound. A sample of the serosanguineous drainage associated with the wound was sent for aerobic and anaerobic cultures. Three samples of granulation tissue within the wound margins were excised with the use of scissors and sent for aerobic, anaerobic, and fungal cultures. No cellulitis of the left kbzid-ydd-naup amputation stump is appreciated. No maceration of the skin of the periwound is noted. No significant edema of the left iooho-kjx-fnvf amputation stump is present on exam today. ASSESSMENT AND PLAN: 1. Ulceration of left nsnun-blj-gxqk amputation stump as described above. Arrangements will be made for the initiation of negative pressure therapy with dressing changes of the wound VAC 3 times per week with the assistance of Home Health. I will see Jeredangelrandaljackson in 2 weeks after negative pressure therapy has been initiated. Antibiotic therapy will be initiated based upon the results of the cultures obtained today. Plain films of the left xqsgg-heu-euog amputation stump will also be obtained to look for findings suggestive of osteomyelitis. 2. Nonischemic cardiomyopathy. 3. Chronic diastolic heart failure. 4. Coronary artery disease. 5. Hypertension. 6. Peripheral vascular disease. 7. Osteoarthritis. 8. Hypothyroidism. MTDD
== END 2017-11-13 10:14 | disposition home or self-care (01) ==
LOC: WCC 10:13 → RAD 10:14
PROVIDERS: ATTEND Family Medicine
DX: T87.89 Other complications of amputation stump (principal); Z89.512 Acquired absence of left leg below knee
CPT/HCPCS: 87070; 87077; 87186; 87205; 87206; 97602

== ENCOUNTER 2017-12-04 11:27 | Outpatient (CLI) | payer MEDICARE ==
--- NOTE | 2017-12-04 14:26 | PRG ---
DATE OF SERVICE: 12/04/2017 SUBJECTIVE: Ms. Lyssa Ramirez is a very pleasant 86-year-old accompanied by her daughter, Ms. Davis, who presents to the Wound Center for evaluation of an ulceration of her left bzxsh-dpo-as ee amputation stump. The patient previously stated that she underwent left above the knee amputation on 08/16/[address] Haja Burkett. The patient stated that she subsequently fell in early September of this year. She stated that one suture was placed for closure of the wound resulting from the fall . At this time, arrangements were made for dressing changes with the assistance of Home Health. The patient and her daughter stated that later the suture was discontinued; however, the wound was still present when the suture was discontinued. The patient stated that she fell after her surgical wound had almost completely healed. The patient was referred to the Wound Center by Dr. Sharlene Mg sp ecifically for evaluation for negative pressure therapy to augment the healing of the left above-the- knee amputation stump wound. Since the patient was last seen in the Wound Center, Ms. Ramirez has been receiving negative pressure therapy with dressing changes of the wound VAC 3 times per week wit h the assistance of Home Health. PHYSICAL EXAMINATION: VITAL SIGNS: Temperature 97.7, pulse 61, respirations 18, blood pressure 150/66. EXTREMITIES: An ulceration of the left flqgw-gbi-pvgf amputation stump is present which measures eddie roximately 0.4 x 0.4 cm. The dimensions of the wound at the time of the patient's last visit were ap proximately 1.0 x 1.1 cm. Granulation tissue is present within the wound margins. Nonviable tissue present within the wound margins was debrided with an excisional full-thickness debridement. No puru lent drainage is associated with the wound. No cellulitis of the left mypon-cna-eacg amputation stum p is appreciated. No maceration of the skin of the periwound is noted. No significant edema of the left otplq-ned-ckuj amputation stump is present on exam today. ASSESSMENT AND PLAN: 1. Ulceration of left uigtv-wvu-lawa amputation stump as described above. Negative pressure therapy will be discontinued today. Dressing changes of Promogran and Silvercel and Mepilex border will be initiated. These dressing changes are to be performed 3 times per week after cleansing and irrigatio n with the assistance of Home Health. I will see Ms. Ramirez again on an as needed basis. The wo und of the left gryji-nrd-tekr amputation stump has almost healed completely. 2. Nonischemic cardiomyopathy. 3. Chronic diastolic heart failure. 4. Coronary artery disease. 5. Hypertension. 6. Peripheral vascular disease. 7. Osteoarthritis. 8. Hypothyroidism.
[2017-12-06] MEDS ORDERED: Sodium Chloride 0.9% 15 ML NEB ONE (12:27)
== END 2017-12-04 11:28 | disposition home or self-care (01) ==
LOC: WCC 11:27
PROVIDERS: ATTEND Family Medicine
DX: T87.89 Other complications of amputation stump (principal); L97.829 Non-pressure chronic ulcer of other part of left lower leg with unspecified severity; I42.9 Cardiomyopathy, unspecified; I50.32 Chronic diastolic (congestive) heart failure; I25.10 Atherosclerotic heart disease of native coronary artery without angina pectoris; I10 Essential (primary) hypertension; I73.9 Peripheral vascular disease, unspecified; M19.90 Unspecified osteoarthritis, unspecified site; E03.9 Hypothyroidism, unspecified
CPT/HCPCS: 11042

== ENCOUNTER 2018-03-04 16:17 | Inpatient (IN) | payer MEDICARE ==
[2018-03-04] MEDS ORDERED: Diltiazem 125 MG/25 ML ONE (16:39)
[2018-03-04 16:45] LABS: #Basophils 0.1 thou/uL (0.0-0.2); #Eosinphils 0.4 thou/uL (0.0-0.7); #Lymphocytes 2.2 thou/uL (1.20-3.40); #Neutrophils 6.4 thou/uL (1.40-6.50); %Basophils 0.5 % (0.0-1.0); %Eosinophils 4.4 % (0.0-10.0); %Lymphocytes 21.8 % (21.0-51.0); %Monocytes 9.4 % (0.0-10.0); %Neutrophils 63.9 % (42.0-75.0); Hemoglobin 12.7 g/dL (12.0-16.0); Mean Corpuscular HGB CONC 31.4 g/dL (32.0-36.0); Mean Corpuscular Hemoglobin 24.2 pg (27.0-31.0); Mean Corpuscular Volume 77.2 fl (81.0-99.0); Mean Platelet Volume 7.9 fL (7.4-10.4); Platelet Count 316 thou/uL (130-400); RBC Distribution Width 18.6 % (11.5-14.5); Red Blood Cell (RBC) Count 5.25 mill/uL (4.20-5.40)
[2018-03-04 17:08] LABS: Anion Gap 14 mmol/L (10-20); BUN (Urea Nitrogen) 21 mg/dL (9.8-20.1); CK (CPK) 131 U/L (29-168); Calc. Creatinine Clearance 0 mL/min (70-130); Calcium 9.9 mg/dL (7.8-10.44); Carbon Dioxide 26 mmol/L (23-31); Chloride 103 mmol/L (98-107); Estimated GFR-MDRD 54; Glucose 84 mg/dL (83-110); Magnesium 1.9 mg/dL (1.6-2.6); Potassium 4.3 mmol/L (3.5-5.1); Sodium 139 mmol/L (136-145)
[2018-03-04] MEDS ORDERED: Diltiazem HCl 125 MG, Admixture Fee 1 EACH in Sodium Chloride 0.9% 100 ML IVPB SCH (17:15)
--- NOTE | 2018-03-04 17:34 | RAD ---
AP VIEW OF THE CHEST: 03/04/18 INDICATION: Emergency Room evaluation for EKG changes and a-fib. COMPARISON: Prior exam dated 06/12/13 and 02/18/17. FINDINGS: There is stable cardiomegaly, midline sternotomy changes and multilead AICD. No confluent air space o pacity, pleural effusion, or pneumothorax is evident. No acute osseous abnormality is evident. IMPRESSION: No acute cardiopulmonary abnormality. POS: EDITH
[2018-03-04] MEDS ORDERED: Amiodarone 200 MG TAB PO SCH (18:00)
[2018-03-04] MEDS ORDERED: Rivaroxaban 15 MG TAB PO SCH (20:15)
[2018-03-04 23:00] VITALS: BMI 26.7
--- NOTE | 2018-03-05 04:14 | HP ---
PRIMARY CARE PHYSICIAN: Dr. Sharlene Mg. CODE STATUS: FULL CODE. Time of evaluation : 1120 pm CHIEF COMPLAINT: Patient has irregular heartbeats. HISTORY OF PRESENT ILLNESS: This is an 87-year-old female patient with past medical history of coronary artery disease, congestive heart failure, myocardial infarction, hypothyroidism came to the hospital after having been referred by Dr. Garay to the hospital and she was for a followup appointment today and she was found to be in atrial fibrillation with RVR, patient denies any symptoms. No chest pain, no shortness of breath, no dizziness, no weakness , no feeling lightheaded, no palpitations. Of note, she has a history of having AICD and pacemaker. For that reason, she has been placed in the hospital. She is currently on Cardizem drip and rate is controlled. REVIEW OF SYSTEMS: Constitutional: No fever, no chills, no generalized weakness. Respiratory: No cough or sputum production or shortness of breath. Cardiovascular: No chest pain, no palpitation, no shortness of breath. Gastrointestinal: No nausea, no vomiting, no diarrhea, no abdominal pain. 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 Genitourinary: No burning with urination. Extremity: No leg swelling. All other systems were reviewed. They were negative except for the positives as mentioned above. PAST SURGICAL HISTORY: The patient has history of mother with cancer and father with cardiac problems. Patient has right leg amputation, appendectomy. PMH: hypothyroidism, ID Family hx : father CAD, mother cancer PSYCHIATRIC: No previous psych history. SOCIAL HISTORY: No alcohol, no drugs, no smoking history. ALLERGIES: No known drug allergies. HOME MEDICATIONS: The patient was on amitriptyline 25 mg once a day, Coreg 6.25 two times a day, gabapentin 300 mg 2 times a day, atorvastatin 20 mg once a day, citalopram 20 mg once a day, Synthroid 75 mcg orally once a day, aspirin 81 mg once a day, Imdur 60 mg once a day, furosemide 20 mg 2 times a day, Plavix 75 mg orally once a day. PHYSICAL EXAMINATION: VITAL SIGNS: The patient's systolic blood pressure was 163, diastolic 83, heart rate 136, respiratory rate was 18, temperature 98, saturation 95 on room air. GENERAL APPEARANCE: She is alert, oriented, no acute distress, obese. HEENT: Eyes: Normal conjunctivae. Moist oral mucosa. RESPIRATORY: Bilateral air entry. No rales, no wheezing. Symmetric expansion. CARDIOVASCULAR: Patient has irregular rhythm, rate is controlled by the time of my examination on Cardizem drip, no murmurs, no gallop. No edema. ABDOMEN: Soft, normal bowel sounds. MUSCULOSKELETAL: Baseline range of motion and strength. No tenderness. SKIN: Warm and intact. No pain, no rash, no redness. NEUROLOGIC: Baseline sensorium. No evidence of any focal weakness. Baseline speech. Cranial nerves seem to be intact. PSYCHIATRIC: Mood is normal. No anxiety, oriented, optimal judgment. IMAGING: Chest x-ray was reviewed. Patient has a low-grade cardiopulmonary abnormalities. Tele monitor was reviewed. The patient is currently in atrial fibrillation with controlled rate. No evidence of any acute ischemic events seen. LABORATORY DATA: Labs were reviewed by myself. The patient has a white count of 10, hemoglobin of 12.7 with a platelet count of 316. Chemistry was normal. The only abnormal parameter was BUN of 21 mildly elevated and a GFR of 54. No other significant findings were found on the labs. ASSESSMENT AND PLAN: 1. Atrial fibrillation with rapid ventricular response, was found during Cardiology follow up today, patient has been placed on medication by Dr. Garay including amiodarone and subsequently placed on Cardizem drip in ER. The rate has been controlled, follow up to Dr. Garay' recommendations for further treatment. 2. History of diastolic dysfunction, reconcile home medications, this problem seems to be stable at this point. 3. Controlled hypertension, we will reconcile home medications and we will monitor, will adjust the treatment as needed. 4. Deep venous thrombosis prophylaxis. 5. History of coronary artery disease, this problem seems to be stable at this point. We will reconcile home medications. risk assessment: high risk-pt on caedizem drip, this drug needs contnues telemetry monitoring while being administered MTDD
[2018-03-05] MEDS: Furosemide 20 MG TAB PO SCH ×2 (06:45→14:59)
[2018-03-05] MEDS: Mometasone/Formoterol 120 PUFF INHALER INH SCH ×2 (07:42→18:18)
[2018-03-05] MEDS ORDERED: Carvedilol 6.25 MG TAB PO SCH (09:00)
[2018-03-05] MEDS ORDERED: Clopidogrel Bisulfate 75 MG TAB PO SCH (09:00)
[2018-03-05] MEDS ORDERED: Citalopram 20 MG TAB PO SCH (09:00)
[2018-03-05] MEDS ORDERED: Aspirin 81 mg Enteric Coated Tablet PO SCH (09:00)
[2018-03-05] MEDS ORDERED: Non-Formulary Item 1 EACH (Fluticasone/Vilanterol [Breo Ellipta] 1 INH) IH SCH (09:00)
[2018-03-05] MEDS ORDERED: Atorvastatin Calcium 20 MG TAB PO SCH (09:00)
[2018-03-05 09:29] LABS: Hemoglobin 11.1 g/dL (12.0-16.0); Platelet Count 264 thou/uL (130-400)
--- NOTE | 2018-03-05 12:11 | PDOC.PN ---
- Subjective Encounter Start Date: 03/05/18 Encounter Start Time: 09:15 Subjective: no c/o palp or chest pain or sob -: feels better now - Objective MAR Reviewed: Yes Result Diagrams: 03/05/18 09:21 03/05/18 09:21 Phys Exam - Physical Examination HEENT: PERRLA, moist MMs Neck: no JVD, supple Respiratory: no wheezing, no rales Cardiovascular: no significant murmur, irregular Gastrointestinal: soft, non-tender, positive bowel sounds Musculoskeletal: no edema, pulses present Neurological: non-focal, moves all 4 limbs Psychiatric: normal affect, A&O x 3 Dx/Plan (1) Afib Code(s): I48.91 - UNSPECIFIED ATRIAL FIBRILLATION Status: Acute Qualifiers: Atrial fibrillation type: chronic Qualified Code(s): I48.2 - Chronic atrial fibrillation (2) CAD (coronary artery disease) Code(s): I25.10 - ATHSCL HEART DISEASE OF [place] CORONARY ARTERY W/O ANG PCTRS Status: Chronic Qualifiers: Coronary Disease-Associated Artery/Lesion type: bypass graft [place] vs. transplanted heart: [place] heart Associated angina: without angina Qualified Code(s): I25.810 - Atherosclerosis of coronary artery bypass graft(s) without angina pectoris (3) HTN (hypertension) Code(s): I10 - ESSENTIAL (PRIMARY) HYPERTENSION Status: Chronic Qualifiers: Hypertension type: essential hypertension Qualified Code(s): I10 - Essential (primary) hypertension (4) Dyslipidemia Code(s): E78.5 - HYPERLIPIDEMIA, UNSPECIFIED Status: Chronic (5) PVD (peripheral vascular disease) Code(s): I73.9 - PERIPHERAL VASCULAR DISEASE, UNSPECIFIED Status: Chronic (6) h/o left aka Status: Chronic (7) Hypothyroidism Code(s): E03.9 - HYPOTHYROIDISM, UNSPECIFIED Status: Chronic Qualifiers: Hypothyroidism type: unspecified Qualified Code(s): E03.9 - Hypothyroidism , unspecified - Plan dc cardizem drip, pt's rate is controlled now -: on asp, lipitor, xarelto, ?oral cardizem -: is on lasix, will get echo. DC plavix -: she needs to f/u with her orthotic supplier for help with right fitting/ -: -additional cushoning etc for left aka prosthetic. * . Review of Systems - Medications/Allergies Allergies/Adverse Reactions: Allergies Allergy/AdvReac Type Severity Reaction Status Date / Time No Known Allergies Allergy Verified 03/05/18 03:00 Medications: Current Medications Amitriptyline HCl (Elavil) 50 mg PO HS [facility] Aspirin (Ecotrin) 81 mg PO DAILY [facility] Last Admin: 03/05/18 08:59 Dose: 81 mg Atorvastatin Calcium (Lipitor) 20 mg PO DAILY [facility] Last Admin: 03/05/18 08:59 Dose: 20 mg Carvedilol (Coreg) 6.25 mg PO BID [facility] Last Admin: 03/05/18 08:59 Dose: 6.25 mg Citalopram Hydrobromide (Celexa) 40 mg PO DAILY [facility] Last Admin: 03/05/18 08:59 Dose: 40 mg Furosemide (Lasix) 20 mg PO 0600,1400 [facility] Last Admin: 03/05/18 06:45 Dose: 20 mg Diltiazem HCl 125 mg/Miscellaneous Medication 1 each/ Sodium Chloride 125 mls @ 10 mls/hr IVPB INF HATTIE PRN Reason: Protocol Last Admin: 03/05/18 05:47 Dose: 125 mls Mometasone Furoate/Formoterol Fumar (Dulera 100 Mcg/5 Mcg Inhaler) 2 puff INH BID-RT [facility] Last Admin: 03/05/18 07:42 Dose: 2 puff Pneumococcal 13-Valent Conj Vacc (Prevnar) 0.5 ml IM .ONCE ONE Stop: 03/06/18 09:01 Rivaroxaban (Xarelto) 15 mg PO QPM-WM [facility] Sodium Chloride (Flush - Normal Saline) 10 ml IVF Q12HR [facility] Last Admin: 03/05/18 09:00 Dose: Not Given Sodium Chloride (Flush - Normal Saline) 10 ml IVF PRN PRN PRN Reason: Saline Flush
[2018-03-05] MEDS ORDERED: Amiodarone 200 MG TAB PO SCH ×3 (15:53→16:15)
[2018-03-05 16:45] VITALS: BP 157/80; TEMP 98.3
--- NOTE | 2018-03-05 16:54 | CT ---
CT OF THE HEAD WITHOUT CONTRAST 03/05/18 COMPARISON: None. HISTORY: Right hand numbness, transient ischemic attack. TECHNIQUE: Serial axial CT imaging at 5 mm intervals from vertex through skull base without contrast. FINDINGS: The imaged paranasal sinuses and mastoid air cells are well aerated. There is no displaced calvarial fracture. There is atherosclerotic calcification of the cavernous carotid arteries. No intracranial hemorrhage, midline shift, mass effect or ventricular enlargement. IMPRESSION: No intracranial hemorrhage. If there is clinical concern for acute infarction, brain MRI advised. POS: [facility]
[2018-03-05] MEDS ORDERED: Rivaroxaban 15 MG TAB PO SCH (17:00)
[2018-03-05] MEDS ORDERED: Rivaroxaban 10 MG TAB PO SCH (17:00)
--- NOTE | 2018-03-05 17:54 | PRG ---
DATE OF SERVICE: 03/05/2018 SUBJECTIVE: Ms. Ramirez feels better today. Her heart rate is much better. She has no chest karl n or pressure. She does however report some numbness and loss of feeling in the right hand, which oc curred suddenly. She has had it somewhere between 10 days and 2 weeks ago. She said it was hard for her to pick things up. This occurred abruptly. She has no weakness, but just had this numb sensati on. PHYSICAL EXAMINATION: VITAL SIGNS: Her blood pressure is 146/71; pulse is in the 70s-80, atrial fibrillation. LUNGS: Clear. CARDIAC: Irregularly irregular. ABDOMEN: Soft, nontender. EXTREMITIES: There is no edema. ASSESSMENT: 1. Atrial fibrillation, initially with a very rapid rate, now rate is controlled. 2. History of diastolic heart failure. 3. Previous bypass surgery. 4. Hand numbness ? transient ischemic attack. PLAN: 1. We will do CT scan of the head. 2. At some point, need to do outpatient carotid Doppler studies. She does not wish to wait to have this done today. 3. Stop Plavix. 4. She is on Xarelto 20 mg a day. 5. Cardizem CD 120 mg a day. 6. Amiodarone 200 mg a day. 7. Coreg 6.25 mg twice a day. 8. If the patient maintains atrial fibrillation, we would recommend transesophageal echo and cardiov ersion in a couple of weeks. We would like to get a little more amiodarone in her system prior to ca rdioversion. Also, she may spontaneously go back to sinus rhythm without any therapy.
[2018-03-05] MEDS ORDERED: Amitriptyline HCl 25 MG TAB PO SCH (21:00)
[2018-03-06] MEDS ORDERED: Prevnar 13-Val Conj/PF 0.5 ML SYRINGE IM ONE (09:00)
[2018-03-06] MEDS ORDERED: Amiodarone 200 MG TAB PO SCH ×2 (09:00)
== END 2018-03-05 18:23 | disposition home or self-care (01) | DRG 309 ==
LOC: ERS 16:17 → 2NO 19:00 → OBSVTOIN 03-05 10:18
PROVIDERS: ADMIT Emergency Medicine; ATTEND Emergency Medicine
DX: I48.91 Unspecified atrial fibrillation (principal); I50.32 Chronic diastolic (congestive) heart failure; I25.10 Atherosclerotic heart disease of native coronary artery without angina pectoris; I11.0 Hypertensive heart disease with heart failure; I25.2 Old myocardial infarction; E03.9 Hypothyroidism, unspecified; Z95.810 Presence of automatic (implantable) cardiac defibrillator; Z95.0 Presence of cardiac pacemaker; Z95.1 Presence of aortocoronary bypass graft; E78.5 Hyperlipidemia, unspecified; I73.9 Peripheral vascular disease, unspecified; Z89.612 Acquired absence of left leg above knee
CPT/HCPCS: 36415; 70450; 71045; 80048; 82550; 82565; 83735; 85014; 85018; 85025; 85049; 93005; 96365; 96366; 96376; A4216; J7050

== ENCOUNTER 2018-04-25 11:29 | Inpatient (IN) | payer MEDICARE ==
[2018-04-25 12:07] LABS: Hemoglobin 12.8 g/dL (12.0-16.0); Mean Corpuscular HGB CONC 30.4 g/dL (32.0-36.0); Mean Corpuscular Volume 75.5 fL (78.0-98.0); Mean Platelet Volume 8.3 fL (7.4-10.4); Platelet Count 377 thou/uL (130-400); Red Blood Cell (RBC) Count 5.58 mill/uL (4.20-5.40); White Blood Cell (WBC) Count 14.1 thou/uL (4.8-10.8)
--- NOTE | 2018-04-25 12:11 | RAD ---
CHEST 1 VIEW: Date: 04/25/18 HISTORY: Weakness. Altered mental status. COMPARISON: 03/04/18. FINDINGS: Cardiac silhouette magnified and enlarged. Pulmonary vasculature is unremarkable. Mediastinum is midl ine with aortic calcification, postoperative changes, and a multilead left subclavian cardiac electro rakesh device. No lobar consolidation or evidence of pneumothorax. Chronic right rotator cuff tear. IMPRESSION: 1. Atherosclerosis. 2. Cardiomegaly. Chronic-type findings appear stable. POS: [facility]
[2018-04-25 12:25] LABS: CKMB 2.8 ng/mL (0-6.6); Troponin I 0.038 ng/mL (< 0.028)
[2018-04-25 12:29] LABS: Band 17 % (5-11); Hypochromia SLIGHT = 6-15 cells (100X) (0-5/hpf); Lymphocytes 8 % (21-51); MDiff Complete? YES; Microcytosis SLIGHT = 6-15 cells (100X) (0-5/hpf); Monocytes 5 % (0-10); Neutrophil 70 % (42-75); PLT Morphology Comment Appears Adequate; Polychromasia SLIGHT = 2-3 cells (100X) (0-2/hpf)
[2018-04-25 12:32] LABS: ALT (SGPT) 21 U/L (8-55); AST (SGOT) 52 U/L (5-34); Albumin 4.3 g/dL (3.4-4.8); Alkaline Phosphatase 114 U/L (40-150); Anion Gap 21 mmol/L (10-20); BUN (Urea Nitrogen) 70 mg/dL (9.8-20.1); Bilirubin, Total 1.2 mg/dL (0.2-1.2); CK (CPK) 81 U/L (29-168); Calc. Creatinine Clearance 0 mL/min (70-130); Carbon Dioxide 28 mmol/L (23-31); Chloride 87 mmol/L (98-107); Estimated GFR-MDRD 22; Globulin 5.2 g/dL (2.4-3.5); Glucose 121 mg/dL (83-110); Lipase 27 U/L (8-78); Magnesium 3.9 mg/dL (1.6-2.6); Protein, Total 9.5 g/dL (6.0-8.3); Sodium 132 mmol/L (136-145)
[2018-04-25 13:35] LABS: Bilirubin Small (Negative); Blood, Urine Negative (Negative); Clarity CLEAR (Clear); Glucose, Urine (Dipstick) Negative (Negative); Leukocyte Small (Negative); Nitrite Negative (Negative); Protein, Urine (Dipstick) Negative (Neg-Trace); Specific Gravity, Urine 1.014 (1.002-1.036); pH, Urine 5.5 (5.0-9.0)
[2018-04-25 13:37] LABS: RBC/HPF 0-3 HPF (0-3); Yeast-AUWi Flag 4.9 (0-25.0)
[2018-04-25 13:42] LABS: Pathc Cast-AUWi Flag 3.19 (0-2.49)
[2018-04-25 13:55] LABS: Bacteria/HPF 1+ HPF (None Seen)
[2018-04-25 13:56] LABS: Renal Epithelial 0-3 HPF (0-3)
[2018-04-25 13:57] LABS: Hyaline Casts/LPF 7-10 HYALINE CAST LPF (0-3 Hyaline)
[2018-04-25] MEDS ORDERED: cefTRIAXone\\ROCEPHIN 2 GM in Sodium Chloride 0.9% 100 ML IVPB SCH (14:30)
--- NOTE | 2018-04-25 15:21 | CT ---
CT BRAIN WITHOUT CONTRAST: Date: 04/25/18 HISTORY: Weakness. Altered mental status. FINDINGS: Comparison made with exam of 03/05/18. No evidence of infarct, hemorrhage, midline shift, or abnormal extra-axial fluid collections are seen . The ventricular size is appropriate and the basilar cisterns are patent. The bony calvarium is inta ct. The visualized paranasal sinuses and mastoid air cells are well aerated. IMPRESSION: No CT evidence of acute intracranial process. POS: [facility]
--- NOTE | 2018-04-25 15:36 | HP ---
PRIMARY CARE PHYSICIAN: Dr. Sharlene Mg. REASON FOR ADMISSION: Generalized weakness, UTI, sepsis. HISTORY OF PRESENT ILLNESS: An 87-year-old female who has history of left [id number] amputation, coronary artery disease with history of CABG and peripheral vascular disease who presented to the ergency room for evaluation of generalized weakness. Patient reports that last night the patient was trying to get out of bed. She fell down on the floor. She was not able to use her wheelchair. She was feeling weakness. She was also having diarrhea. She was having poor appetite. She was feeling chills, but she is not sure about fever. The patient did not have any chest pain, palpitation or sy ncope. She was having generalized weakness. The patient is on diuretic therapy on a daily basis as well as another diuretic which patient is not able to come up with the name, which she takes every other day. Patient was feeling lightheaded, diz zy. She never had any syncopal episode. She was feeling shaky. The patient's family member reports that she was having bleeding. Her right lower extremity form petechiae and that is why patient was on chronic anticoagulation with Eliquis, which was stopped for 1 week. The patient was only advised to continue aspirin and subsequently aspirin was also discontinued for 5 days and Eliquis was just st arted yesterday. She denies any head injuries. She denies any focal motor weakness. She denies any melena or hematochezia, but she does have diarrhea which is foul smelling. She denies any recent an tibiotic exposure. She does not report any UTI symptoms. Today in the emergency room, patient had routine blood test, which showed leukocytosis with bandemia. She was diagnosed with acute kidney failure with creatinine of 2.09. Her BNP is elevated and has a n indeterminant troponin. Her urinalysis was suggestive of UTI in the emergency room, considering se psis. The patient was given Rocephin and IV fluid. Subsequently, patient is being admitted to [facility] floor. REVIEW OF SYSTEMS: The following complete review of systems was negative, unless otherwise mentioned in the HPI or below: Constitutional: Weight loss or gain, ability to conduct usual activities. Skin: Rash, itching. Eyes: Double vision, pain. ENT/Mouth: Nose bleeding, neck stiffness, pain, tenderness. Cardiovascular: Palpitations, dyspnea on exertion, orthopnea. Respiratory: Shortness of breath, wheezing, cough, hemoptysis, fever or night sweats. Gastrointestinal: Poor appetite, abdominal pain, heartburn, nausea, vomiting, constipation, or diarr hea. Genitourinary: Urgency, frequency, dysuria, nocturia. Musculoskeletal: Pain, swelling. Neurologic/Psychiatric: Anxiety, depression. Allergy/Immunologic: Skin rash, bleeding tendency. Please see my HPI for pertinent positive and negative. All other review of systems reviewed and nega tive except as mentioned in the HPI. ALLERGIES: No known drug allergy. CURRENT HOME MEDICATIONS: Amitriptyline 25 mg p.o. daily, Coreg 6.25 mg p.o. b.i.d., gabapentin 600 mg twice daily, Lipitor 20 mg p.o. at bedtime., Celexa 20 mg p.o. daily, Synthroid 75 mcg p.o. daily, aspirin 81 mg p.o. daily, Imdur 60 mg p.o. daily, torsemide 20 mg in the evening and 40 mg in the mo rning, Plavix 75 mg p.o. daily. PAST MEDICAL HISTORY: Coronary artery disease, chronic diastolic heart failure, history of MT, hypot hyroidism, gastroesophageal reflux disease, peripheral vascular disease, hypertension, asthma, histor y of left AKA. PAST PSYCHIATRIC HISTORY: Anxiety and depression. PAST SURGICAL HISTORY: CABG, hysterectomy, left above knee amputation, appendicectomy, AICD in place . SOCIAL HISTORY: Patient lives alone. She does not have any tobacco, alcohol or illicit drug abuse. She ambulates with a wheelchair. FAMILY HISTORY: Positive for heart disease, stroke, hypertension among several family members. EMERGENCY ROOM COURSE: Patient is given Rocephin, IV fluid. PHYSICAL EXAMINATION: VITAL SIGNS: On arrival, blood pressure 104/69, pulse 98, respiratory rate 16, temperature 97.9, sat uration 96% on room air, weight 59.8 kilograms. GENERAL: The patient appears alert, awake, chronically ill, no obvious acute distress. HEAD: Normocephalic, atraumatic. EYES: Pupils round, reactive to light. Extraocular muscle intact. ENT: Dry mucous membrane, no oral lesion, no pharyngeal erythema, no exudate. NECK: Supple, no JVD, no thyromegaly, no carotid bruit, no meningeal signs of irritation. LUNGS: Clear to auscultation without any rhonchi or rales, air entry reduced at left base. CARDIAC: S1, S2 appears regular. No murmur elicited, no gallop, no rub. ABDOMEN: Soft, bowel sounds present. No abdominal discomfort. No suprapubic tenderness, no periton eal sign, no guarding, no rigidity, no rebound. BACK: Unremarkable, no CVA tenderness. EXTREMITIES: Upper extremity passive movements of all joints are normal. Lower extremities; left AK A. Right lower extremity has chronic appearing wound. Distal pulsation intact on the right side. NEUROLOGIC: Grossly nonfocal examination. Her speech is normal. Cranial nerves intact. Motor and sensation within normal limits. No focal neurological deficit noted. SKIN: No skin rash other than chronic skin wound in the right lower extremity. PSYCHIATRIC: Normal affect. IMAGING DATA AND SIGNIFICANT LABORATORY DATA: EKG showing pacemaker rhythm, premature ventricular co mplexes. Chest x-ray based on my review, atherosclerosis, cardiomegaly, chronic changes. CBC: WBC 14.1, hemoglobin 12.8, platelets 377 with bandemia. BMP: Sodium 132, potassium 4.0, chloride 87, ca rbon dioxide 28, anion gap 21, BUN 70, creatinine 2.09, glucose 121, calcium 9.0, magnesium 3.9. LFT : AST 52, ALT 21, alkaline phosphatase is 114, albumin 4.3, CK 81, CK-MB 2.8, troponin I 0.038. BNP 581, lipase 27. Urinalysis suggestive of UTI. ASSESSMENT AND PLAN/IMPRESSION: 1. Acute generalized weakness, multifactorial, rule out ACS, treat underlying infection, hydrate for acute kidney failure. Consider PT/OT placement evaluation. 2. Sepsis likely due to urinary tract infection, rule out C. diff infection. We will check stool fo r C. diff and we will send urine culture and blood culture and start empiric Rocephin and follow up o n culture result and change antibiotic therapy accordingly. 3. Acute kidney failure, likely due to over diuresis. We will check urine sodium, creatinine and pr otein. We will continue with IV fluid and we will watch for any fluid overload status. We will avoi d nephrotoxin agent and we will repeat BMP tomorrow. 4. Elevated troponin. We will do serial cardiac enzymes x3 to rule out acute coronary syndrome, mani vated BNP, most likely related with the patient's previous history of congestive heart failure. Adriano ng this admission, we will repeat echocardiography to assess ejection fraction and other structural a bnormality. Currently, patient appears euvolemic based on clinical assessment. 5. Urinary tract infection. We will follow up on urine culture result. We will start Rocephin 1 gr am q.24 hours. 6. Bandemia, rule out C. diff infection. We will check stool for C. diff. 7. Wound over right lower extremity. Wound care team will be assessed while in hospital. 8. Peripheral vascular disease with history of left AKA. Continue aspirin, Plavix, statin therapy. 9. Hypothyroidism. Continue Synthroid 75 mcg p.o. daily. 10. Nonspecified ventricular arrhythmia. Continue amiodarone 200 mg p.o. daily, Cardizem CD 120 mg p.o. daily, Eliquis 2.5 mg p.o. b.i.d. 11. Coronary artery disease with history of coronary artery bypass grafting. Continue aspirin, Plav ix, statin therapy as well as amiodarone, Cardizem CD and Imdur. 12. Anxiety and depression. Continue Celexa. 13. Dyslipidemia. Continue Lipitor 20 mg p.o. at bedtime. 14. Deep venous thrombosis prophylaxis. Patient is already on chronic anticoagulation therapy. 15. Gastrointestinal prophylaxis, Pepcid 20 mg p.o. daily. CODE STATUS: Patient is DNR. Patient's daughter is surrogate decision maker. Disposition plan based on clinical course. We are expecting patient's stay in the hospital more than 2 midnights. Plan of care discussed with the patient and her daughter at bedside in the emergency r oom.
[2018-04-25 16:18] LABS: Troponin I 0.059 ng/mL (< 0.028)
[2018-04-25] MEDS ORDERED: Loratadine 10 MG TAB PO PRN (17:31)
[2018-04-25] MEDS ORDERED: Artificial Tears 18 DROP/0.9 ML EA EYE PRN (17:31)
[2018-04-25] MEDS ORDERED: Ondansetron ODT 4 MG TAB PO PRN (17:31)
[2018-04-25] MEDS ORDERED: Acetaminophen 325 MG TAB PO PRN (17:31)
[2018-04-25] MEDS ORDERED: Milk Of Magnesia 30 ML UDCUP PO PRN (17:31)
[2018-04-25] MEDS ORDERED: Chloraseptic Spray 180 ml Bottle PO PRN (17:31)
[2018-04-25] MEDS ORDERED: Calcium Carbonate 500 MG ChewTAB PO PRN (17:31)
[2018-04-25] MEDS ORDERED: hydrALAZINE 20 MG/ML VIAL SLOW IVP PRN (17:31)
[2018-04-25] MEDS ORDERED: Eucerin (Mineral Oil/Petrolatum,White) 30 gm Jar TOP PRN (17:31)
[2018-04-25] MEDS ORDERED: Senokot 8.6 MG TAB PO PRN (17:31)
[2018-04-25] MEDS ORDERED: Loperamide HCl 2 MG CAP PO PRN (17:31)
[2018-04-25] MEDS ORDERED: Zolpidem Tartrate 5 MG TAB PO PRN (17:31)
[2018-04-25] MEDS ORDERED: Diabetic Tussin 200 MG/10 ML UDCUP PO PRN (17:31)
[2018-04-25] MEDS ORDERED: Sodium Chloride 0.9% 1,000 ML IV SCH ×2 (17:31→21:50)
[2018-04-25] MEDS ORDERED: Labetalol HCl 100 MG/20 ML VIAL SLOW IVP PRN (17:31)
[2018-04-25] MEDS ORDERED: Nitroglycerin 0.4 MG TAB (25 Tab Bottle) SL PRN (17:31)
[2018-04-25] MEDS ORDERED: Ondansetron HCl/PF 4 MG/2 ML Vial IVP PRN (17:31)
[2018-04-25] MEDS ORDERED: HYDROcodone/Acetaminophen 5/325 mg Tablet PO PRN (17:31)
[2018-04-25] MEDS ORDERED: Sodium Chloride 0.65% Nasal 44 ML BOT EA NARE PRN (17:31)
[2018-04-25 17:40] VITALS: BMI 24.4
[2018-04-25 19:03] LABS: Troponin I 0.048 ng/mL (< 0.028)
[2018-04-25] MEDS ORDERED: Atorvastatin Calcium 20 MG TAB PO SCH (21:00)
[2018-04-25] MEDS: Apixaban 2.5 MG TAB PO SCH (21:26)
[2018-04-25] MEDS: Carvedilol 6.25 MG TAB PO SCH (21:26)
[2018-04-25] MEDS: Famotidine 20 MG TAB PO SCH (21:27)
[2018-04-26] MEDS: Levothyroxine Sodium 75 MCG TAB PO SCH (05:11)
[2018-04-26 05:42] LABS: #Eosinphils 0.1 thou/uL (0.0-0.7); #Lymphocytes 1.2 thou/uL (1.20-3.40); #Monocytes 1.2 thou/uL (0.11-0.59); #Neutrophils 9.5 thou/uL (1.40-6.50); %Basophils 0.2 % (0.0-1.0); %Eosinophils 0.8 % (0.0-10.0); %Lymphocytes 10.2 % (21.0-51.0); %Monocytes 10.3 % (0.0-10.0); %Neutrophils 78.5 % (42.0-75.0); Hemoglobin 11.3 g/dL (12.0-16.0); Mean Corpuscular HGB CONC 31.7 g/dL (32.0-36.0); Mean Corpuscular Hemoglobin 23.7 pg (27.0-31.0); Mean Corpuscular Volume 74.9 fL (78.0-98.0); Mean Platelet Volume 7.4 fL (7.4-10.4); Platelet Count 334 thou/uL (130-400); RBC Distribution Width 16.4 % (11.5-14.5); Red Blood Cell (RBC) Count 4.78 mill/uL (4.20-5.40); White Blood Cell (WBC) Count 12.1 thou/uL (4.8-10.8)
[2018-04-26 05:59] LABS: ALT (SGPT) 16 U/L (8-55); AST (SGOT) 18 U/L (5-34); Albumin 3.7 g/dL (3.4-4.8); Alkaline Phosphatase 95 U/L (40-150); Anion Gap 14 mmol/L (10-20); BUN (Urea Nitrogen) 70 mg/dL (9.8-20.1); Bilirubin, Total 0.7 mg/dL (0.2-1.2); Calc. Creatinine Clearance 23 mL/min (70-130); Calcium 9.1 mg/dL (7.8-10.44); Carbon Dioxide 32 mmol/L (23-31); Chloride 92 mmol/L (98-107); Estimated GFR-MDRD 30; Globulin 3.7 g/dL (2.4-3.5); Glucose 123 mg/dL (83-110); Potassium 1.9 mmol/L (3.5-5.1); Protein, Total 7.4 g/dL (6.0-8.3); Sodium 136 mmol/L (136-145)
--- NOTE | 2018-04-26 06:21 | PDOC.EVN ---
Event Note - Event Note Event Note: RN called - Pt getting SOB with hypoxia due to IVF - Will hold IVF for now.
[2018-04-26] MEDS ORDERED: Potassium Chloride 40 MEQ in Sodium Chloride 0.9% 250 ML 250 ML IVPB SCH (08:00)
[2018-04-26 08:18] LABS: Anion Gap 12 mmol/L (10-20); BUN (Urea Nitrogen) 70 mg/dL (9.8-20.1); Calc. Creatinine Clearance 23 mL/min (70-130); Carbon Dioxide 33 mmol/L (23-31); Chloride 93 mmol/L (98-107); Estimated GFR-MDRD 31; Glucose 117 mg/dL (83-110); Sodium 136 mmol/L (136-145)
[2018-04-26 09:31] LABS: Potassium 2.3 mmol/L (3.5-5.1)
[2018-04-26] MEDS: Apixaban 2.5 MG TAB PO SCH ×2 (09:38→21:11)
[2018-04-26] MEDS: Potassium Chloride 20 MEQ TAB PO SCH ×2 (09:38→17:14)
[2018-04-26] MEDS: Amiodarone 200 MG TAB PO SCH (09:39)
[2018-04-26] MEDS: Citalopram 20 MG TAB PO SCH (09:40)
[2018-04-26] MEDS: Gabapentin 300 MG CAP PO SCH ×2 (09:41→20:36)
[2018-04-26] MEDS: Carvedilol 6.25 MG TAB PO SCH ×2 (09:41→20:36)
--- NOTE | 2018-04-26 11:18 | PDOC.PN ---
- Subjective Encounter Start Date: 04/26/18 Encounter Start Time: 07:45 -: old records requested/rev pt did not tolerate IVF due to dyspnea, so fluid was stopped, no fever, overall feels better than yesterday - Objective Resuscitation Status: Resuscitation Status DNR:Do Not Resuscitate MAR Reviewed: Yes Vital Signs & Weight: Vital Signs (12 hours) Temp Pulse Resp BP BP Pulse Ox 04/26/18 09:41 143/66 H 04/26/18 09:40 86 143/66 H 04/26/18 04:00 97.7 F 86 18 143/66 H 94 L 04/26/18 01:33 85 18 88 L Weight Weight 133 lb 14.4 oz I&O: 04/25/18 04/26/18 04/27/18 06:59 06:59 06:59 Intake Total 460 Balance 460 Result Diagrams: 04/26/18 05:07 04/26/18 09:03 EKG Reviewed by me: Yes (nsr) Phys Exam - Physical Examination Constitutional: NAD HEENT: PERRLA, moist MMs, sclera anicteric Neck: no JVD, supple Respiratory: no wheezing, no rales, no rhonchi Cardiovascular: RRR, no significant murmur, no rub Gastrointestinal: soft, non-tender, no distention, positive bowel sounds Musculoskeletal: no edema, pulses present left AKA skin lesion on right side Neurological: non-focal, normal sensation, moves all 4 limbs Lymphatic: no nodes Psychiatric: normal affect, A&O x 3 Skin: no rash, normal turgor Dx/Plan (1) Acute kidney failure Status: Acute Comment: improving (2) Hypokalemia Code(s): E87.6 - HYPOKALEMIA Status: Acute (3) Sepsis Code(s): A41.9 - SEPSIS, UNSPECIFIED ORGANISM Status: Acute Qualifiers: Sepsis type: sepsis due to unspecified organism Qualified Code(s): A41.9 - Sepsis, unspecified organism Comment: with acute organ dysfunction (4) UTI (urinary tract infection) Status: Acute (5) Weakness generalized Code(s): R53.1 - WEAKNESS Status: Acute (6) Anxiety and depression Code(s): F41.9 - ANXIETY DISORDER, UNSPECIFIED; F32.9 - MAJOR DEPRESSIVE DISORDER, SINGLE EPISODE, UNSPECIFIED Status: Chronic (7) CAD (coronary artery disease) Code(s): I25.10 - ATHSCL HEART DISEASE OF [place] CORONARY ARTERY W/O ANG PCTRS Status: Chronic Qualifiers: Coronary Disease-Associated Artery/Lesion type: bypass graft [place] vs. transplanted heart: [place] heart Associated angina: without angina Qualified Code(s): I25.810 - Atherosclerosis of coronary artery bypass graft(s) without angina pectoris (8) Chronic anticoagulation Code(s): Z79.01 - [facility] (CURRENT) USE OF ANTICOAGULANTS Status: Chronic (9) Chronic diastolic (congestive) heart failure Code(s): I50.32 - CHRONIC DIASTOLIC (CONGESTIVE) HEART FAILURE Status: Chronic (10) Dyslipidemia Code(s): E78.5 - HYPERLIPIDEMIA, UNSPECIFIED Status: Chronic (11) H/O above knee amputation Code(s): Z89.619 - ACQUIRED ABSENCE OF UNSPECIFIED LEG ABOVE KNEE Status: Chronic (12) HTN (hypertension) Code(s): I10 - ESSENTIAL (PRIMARY) HYPERTENSION Status: Chronic Qualifiers: Hypertension type: essential hypertension Qualified Code(s): I10 - Essential (primary) hypertension (13) Hypothyroidism Code(s): E03.9 - HYPOTHYROIDISM, UNSPECIFIED Status: Chronic Qualifiers: Hypothyroidism type: unspecified Qualified Code(s): E03.9 - Hypothyroidism , unspecified (14) PVD (peripheral vascular disease) Code(s): I73.9 - PERIPHERAL VASCULAR DISEASE, UNSPECIFIED Status: Chronic (15) Paroxysmal atrial fibrillation Code(s): I48.0 - PAROXYSMAL ATRIAL FIBRILLATION Status: Chronic (16) Demand ischemia Code(s): I24.8 - OTHER FORMS OF ACUTE ISCHEMIC HEART DISEASE Status: Acute - Plan cont current plan of care, 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, PT/OT, social worker delinquency prevention * continue IV rocephin * DC IVF * replace potassium and repeat level and replace if needed * discussed with daughter * will need placement * will get Echo today * follow on culture result * check stool for c-diff. Review of Systems - Review of Systems Constitutional: weakness. negative: fever, chills, sweats, malaise, other ENT: negative: Ear Pain, Ear Discharge, Nose Pain, Nose Discharge, Nose Congestion, Mouth Pain, Mouth Swelling, Throat Pain, Throat Swelling, Other Respiratory: Cough, Shortness of Breath. negative: Dry, Hemoptysis, SOB with Excertion, Pleuritic Pain, Sputum, Wheezing Cardiovascular: negative: chest pain, palpitations, orthopnea, paroxysmal nocturnal dyspnea, edema, light headedness, other Gastrointestinal: negative: Nausea, Vomiting, Abdominal Pain, Diarrhea, Constipation, Melena, Hematochezia, Other Genitourinary: negative: Dysuria, Frequency, Incontinence, Hematuria, Retention , Other Musculoskeletal: negative: Neck Pain, Shoulder Pain, Arm Pain, Back Pain, Hand Pain, Leg Pain, Foot Pain, Other Skin: negative: Rash, Lesions, Abraham, Bruising, Other - Medications/Allergies Allergies/Adverse Reactions: Allergies Allergy/AdvReac Type Severity Reaction Status Date / Time No Known Allergies Allergy Verified 04/25/18 17:32 Medications: Current Medications Acetaminophen (Tylenol) 650 mg PO Q4H PRN PRN Reason: Headache/Fever or Pain Hydrocodone Bitart/Acetaminophen ([place] 5/325) 1 tab PO Q4H PRN PRN Reason: Moderate Pain (4-6) Albuterol/Ipratropium (Duoneb) 3 ml NEB [id number] PRN PRN Reason: SOB &/or Wheezing Last Admin: 04/26/18 01:33 Dose: 3 ml Amiodarone HCl (Cordarone) 200 mg PO DAILY [facility] Last Admin: 04/26/18 09:39 Dose: 200 mg Amitriptyline HCl (Elavil) 25 mg PO HS [facility] Apixaban (Eliquis) 2.5 mg PO BID [facility] Last Admin: 04/26/18 09:38 Dose: 2.5 mg Artificial Tears (Tears Naturale) 0 drop EA EYE PRN PRN PRN Reason: Dry Eyes Atorvastatin Calcium (Lipitor) 20 mg PO HS [facility] Last Admin: 04/25/18 21:26 Dose: 20 mg Atorvastatin Calcium (Lipitor) 20 mg PO HS [facility] Calcium Carbonate (Tums) 1,000 mg PO Q4H PRN PRN Reason: Heartburn or Indigestion Carvedilol (Coreg) 6.25 mg PO BID [facility] Last Admin: 04/26/18 09:41 Dose: 6.25 mg Citalopram Hydrobromide (Celexa) 20 mg PO DAILY [facility] Last Admin: 04/26/18 09:40 Dose: 20 mg Diltiazem HCl (Cardizem Cd) 120 mg PO DAILY [facility] Last Admin: 04/26/18 09:40 Dose: 120 mg Famotidine (Pepcid) 20 mg PO 2100 [facility] Last Admin: 04/25/18 21:27 Dose: 20 mg Gabapentin (Neurontin) 600 mg PO BID [facility] Last Admin: 04/26/18 09:41 Dose: 600 mg Guaifenesin (Robitussin Sf) 200 mg PO Q4H PRN PRN Reason: Cough Hydralazine HCl (Apresoline) 10 mg SLOW IVP Q4H PRN PRN Reason: Systolic BP > 180 Ceftriaxone Sodium 1 gm/ (Sodium Chloride) 100 mls @ 200 mls/hr IVPB 1400 [facility] Potassium Chloride 40 meq/ (Sodium Chloride) 270 mls @ 67.5 mls/hr IVPB NOW [facility] Stop: 04/26/18 11:59 Last Admin: 04/26/18 09:40 Dose: 270 mls Isosorbide Mononitrate (Imdur) 60 mg PO DAILY [facility] Last Admin: 04/26/18 09:40 Dose: 60 mg Labetalol HCl (Normodyne) 20 mg SLOW IVP Q4H PRN PRN Reason: Systolic BP > 180 Levothyroxine Sodium (Synthroid) 75 mcg PO 0600 [facility] Last Admin: 04/26/18 05:11 Dose: 75 mcg Loperamide HCl (Imodium) 2 mg PO PRN PRN PRN Reason: Diarrhea/Loose Stools Loratadine (Claritin) 10 mg PO DAILYPRN PRN PRN Reason: Sinus Symptoms Magnesium Hydroxide (Milk Of Magnesium) 30 ml PO DAILYPRN PRN PRN Reason: Constipation Mineral Oil/White Petrolatum (Eucerin Cream) 0 gm TOP BIDPRN PRN PRN Reason: Dry Skin Nitroglycerin (Nitrostat) 0.4 mg SL Q5MIN PRN PRN Reason: Chest Pain Ondansetron HCl (Zofran Odt) 4 mg PO Q6H PRN PRN Reason: Nausea/Vomiting Ondansetron HCl (Zofran) 4 mg IVP Q6H PRN PRN Reason: Nausea/Vomiting Phenol (Chloraseptic [place] 180 Ml Bot) 0 ml PO PRN PRN PRN Reason: Sore Throat Potassium Chloride (K-Dur) 40 meq PO BID-[facility] Last Admin: 04/26/18 09:38 Dose: 40 meq Senna (Senokot) 2 tab PO HSPRN PRN PRN Reason: Constipation Sodium Chloride ([place] Nasal [place] 0.65%) 0 ml EA NARE QIDPRN PRN PRN Reason: Nasal Congestion Sodium Chloride (Flush - Normal Saline) 10 ml IVF Q12HR HATTIE Sodium Chloride (Flush - Normal Saline) 10 ml IVF PRN PRN PRN Reason: Saline Flush Zolpidem Tartrate (Ambien) 5 mg PO HSPRN PRN PRN Reason: Insomnia
[2018-04-26] MEDS: cefTRIAXone\\ROCEPHIN 1 GM in Sodium Chloride 0.9% 100 ML IVPB SCH (13:56)
[2018-04-26] MEDS: Amitriptyline HCl 25 MG TAB PO SCH (20:35)
[2018-04-26] MEDS: Atorvastatin Calcium 20 MG TAB PO SCH (20:36)
[2018-04-26] MEDS: Famotidine 20 MG TAB PO SCH (20:36)
[2018-04-27] MEDS: Levothyroxine Sodium 75 MCG TAB PO SCH (05:07)
[2018-04-27 05:51] LABS: Anion Gap 11 mmol/L (10-20); BUN (Urea Nitrogen) 62 mg/dL (9.8-20.1); Calc. Creatinine Clearance 26 mL/min (70-130); Calcium 8.9 mg/dL (7.8-10.44); Carbon Dioxide 29 mmol/L (23-31); Chloride 97 mmol/L (98-107); Estimated GFR-MDRD 35; Glucose 132 mg/dL (83-110); Potassium 3.2 mmol/L (3.5-5.1); Sodium 134 mmol/L (136-145)
[2018-04-27 05:52] LABS: Hemoglobin 9.8 g/dL (12.0-16.0); Mean Corpuscular Hemoglobin 23.6 pg (27.0-31.0); Mean Corpuscular Volume 76.2 fL (78.0-98.0); Mean Platelet Volume 7.1 fL (7.4-10.4); Platelet Count 287 thou/uL (130-400); RBC Distribution Width 16.3 % (11.5-14.5); Red Blood Cell (RBC) Count 4.16 mill/uL (4.20-5.40); White Blood Cell (WBC) Count 12.9 thou/uL (4.8-10.8)
[2018-04-27 07:02] LABS: Band 1 % (5-11); Hypochromia SLIGHT = 6-15 cells (100X) (0-5/hpf); Lymphocytes 14 % (21-51); MDiff Complete? YES; Monocytes 8 % (0-10); Neutrophil 77 % (42-75); PLT Morphology Comment Appears Adequate
[2018-04-27] MEDS: Potassium Chloride 20 MEQ TAB PO SCH ×2 (08:49→16:45)
[2018-04-27] MEDS: Gabapentin 300 MG CAP PO SCH ×2 (08:49→20:41)
[2018-04-27] MEDS: Amiodarone 200 MG TAB PO SCH (08:49)
[2018-04-27] MEDS: Citalopram 20 MG TAB PO SCH (08:50)
[2018-04-27] MEDS: Carvedilol 6.25 MG TAB PO SCH ×2 (08:50→20:42)
--- NOTE | 2018-04-27 09:20 | PDOC.PN ---
- Subjective Encounter Start Date: 04/27/18 Encounter Start Time: 08:10 pt feels constipated, has lower abdominal discomfort, she has jerking movement on UE so due to that she has difficulty holding objects - Objective Resuscitation Status: Resuscitation Status DNR:Do Not Resuscitate MAR Reviewed: Yes Vital Signs & Weight: Vital Signs (12 hours) Temp Pulse Resp BP BP Pulse Ox 04/27/18 08:50 74 123/73 04/27/18 07:25 97.5 F L 74 16 123/73 94 L 04/27/18 07:15 97.5 F L 74 16 94 L Weight Weight 133 lb 14.4 oz I&O: 04/26/18 04/27/18 04/28/18 06:59 06:59 06:59 Intake Total 460 400 Output Total 350 Balance 460 50 Result Diagrams: 04/27/18 05:18 04/27/18 05:18 EKG Reviewed by me: Yes (nsr) Phys Exam - Physical Examination Constitutional: NAD HEENT: PERRLA, moist MMs, sclera anicteric Neck: no JVD, supple Respiratory: no wheezing, no rales, no rhonchi Cardiovascular: RRR, no significant murmur, no rub pacemaker/icd+ Gastrointestinal: soft, non-tender, no distention, positive bowel sounds left AKA, right leg skin lesion Neurological: moves all 4 limbs myoclinic jerking noted Psychiatric: normal affect Skin: no rash, normal turgor Dx/Plan (1) Acute kidney failure Status: Acute Comment: improving (2) Hypokalemia Code(s): E87.6 - HYPOKALEMIA Status: Acute (3) Sepsis Code(s): A41.9 - SEPSIS, UNSPECIFIED ORGANISM Status: Acute Qualifiers: Sepsis type: sepsis due to unspecified organism Qualified Code(s): A41.9 - Sepsis, unspecified organism Comment: with acute organ dysfunction (4) UTI (urinary tract infection) Status: Acute (5) Weakness generalized Code(s): R53.1 - WEAKNESS Status: Acute (6) Anxiety and depression Code(s): F41.9 - ANXIETY DISORDER, UNSPECIFIED; F32.9 - MAJOR DEPRESSIVE DISORDER, SINGLE EPISODE, UNSPECIFIED Status: Chronic (7) CAD (coronary artery disease) Code(s): I25.10 - ATHSCL HEART DISEASE OF [place] CORONARY ARTERY W/O ANG PCTRS Status: Chronic Qualifiers: Coronary Disease-Associated Artery/Lesion type: bypass graft [place] vs. transplanted heart: [place] heart Associated angina: without angina Qualified Code(s): I25.810 - Atherosclerosis of coronary artery bypass graft(s) without angina pectoris (8) Chronic anticoagulation Code(s): Z79.01 - ASSISTED (CURRENT) USE OF ANTICOAGULANTS Status: Chronic (9) Chronic diastolic (congestive) heart failure Code(s): I50.32 - CHRONIC DIASTOLIC (CONGESTIVE) HEART FAILURE Status: Chronic (10) Dyslipidemia Code(s): E78.5 - HYPERLIPIDEMIA, UNSPECIFIED Status: Chronic (11) H/O above knee amputation Code(s): Z89.619 - ACQUIRED ABSENCE OF UNSPECIFIED LEG ABOVE KNEE Status: Chronic (12) HTN (hypertension) Code(s): I10 - ESSENTIAL (PRIMARY) HYPERTENSION Status: Chronic Qualifiers: Hypertension type: essential hypertension Qualified Code(s): I10 - Essential (primary) hypertension (13) Hypothyroidism Code(s): E03.9 - HYPOTHYROIDISM, UNSPECIFIED Status: Chronic Qualifiers: Hypothyroidism type: unspecified Qualified Code(s): E03.9 - Hypothyroidism , unspecified (14) PVD (peripheral vascular disease) Code(s): I73.9 - PERIPHERAL VASCULAR DISEASE, UNSPECIFIED Status: Chronic (15) Paroxysmal atrial fibrillation Code(s): I48.0 - PAROXYSMAL ATRIAL FIBRILLATION Status: Chronic (16) Demand ischemia Code(s): I24.8 - OTHER FORMS OF ACUTE ISCHEMIC HEART DISEASE Status: Acute (17) Myoclonic jerking Code(s): G25.3 - MYOCLONUS Status: Acute - Plan cont current plan of care, 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, PT/OT, adoption social worker * renal function continue to improve, potassium better, so far culture negative * will continue rocephin * replace potassium * suspected metabolic etiology for myoclonic jerking but despite metabolic parameter improvement, it has persisted, will get neurology opinion * unsure MRI can be done with her pacemaker/ICD * medication reviewed as below * symptomatic treatment * will need placement * will give her fleet enema for constipation. Review of Systems - Review of Systems Constitutional: weakness. negative: fever, chills, sweats, malaise, other Eyes: negative: Pain, Vision Change, Conjunctivae Inflammation, Eyelid Inflammation, Redness, Other ENT: negative: Ear Pain, Ear Discharge, Nose Pain, Nose Discharge, Nose Congestion, Mouth Pain, Mouth Swelling, Throat Pain, Throat Swelling, Other Respiratory: negative: Cough, Dry, Shortness of Breath, Hemoptysis, SOB with Excertion, Pleuritic Pain, Sputum, Wheezing Cardiovascular: negative: chest pain, palpitations, orthopnea, paroxysmal nocturnal dyspnea, edema, light headedness, other Gastrointestinal: Constipation. negative: Nausea, Vomiting, Abdominal Pain, Diarrhea, Melena, Hematochezia, Other Genitourinary: negative: Dysuria, Frequency, Incontinence, Hematuria, Retention , Other Musculoskeletal: negative: Neck Pain, Shoulder Pain, Arm Pain, Back Pain, Hand Pain, Leg Pain, Foot Pain, Other Neurological: Other (myoclinic jerking) - Medications/Allergies Allergies/Adverse Reactions: Allergies Allergy/AdvReac Type Severity Reaction Status Date / Time No Known Allergies Allergy Verified 04/25/18 17:32 Medications: Current Medications Acetaminophen (Tylenol) 650 mg PO Q4H PRN PRN Reason: Headache/Fever or Pain Hydrocodone Bitart/Acetaminophen ([place] 5/325) 1 tab PO Q4H PRN PRN Reason: Moderate Pain (4-6) Albuterol/Ipratropium (Duoneb) 3 ml NEB [id number] PRN PRN Reason: SOB &/or Wheezing Last Admin: 04/26/18 01:33 Dose: 3 ml Amiodarone HCl (Cordarone) 200 mg PO DAILY [facility] Last Admin: 04/27/18 08:49 Dose: 200 mg Amitriptyline HCl (Elavil) 25 mg PO [facility] Last Admin: 04/26/18 20:35 Dose: 25 mg Apixaban (Eliquis) 2.5 mg PO BID [facility] Last Admin: 04/26/18 21:11 Dose: 2.5 mg Artificial Tears (Tears Naturale) 0 drop EA EYE PRN PRN PRN Reason: Dry Eyes Atorvastatin Calcium (Lipitor) 20 mg PO [facility] Last Admin: 04/26/18 20:36 Dose: 20 mg Calcium Carbonate (Tums) 1,000 mg PO Q4H PRN PRN Reason: Heartburn or Indigestion Carvedilol (Coreg) 6.25 mg PO BID [facility] Last Admin: 04/27/18 08:50 Dose: 6.25 mg Citalopram Hydrobromide (Celexa) 20 mg PO DAILY [facility] Last Admin: 04/27/18 08:50 Dose: 20 mg Diltiazem HCl (Cardizem Cd) 120 mg PO DAILY [facility] Last Admin: 04/27/18 08:50 Dose: 120 mg Famotidine (Pepcid) 20 mg PO 2100 [facility] Last Admin: 04/26/18 20:36 Dose: 20 mg Gabapentin (Neurontin) 600 mg PO BID [facility] Last Admin: 04/27/18 08:49 Dose: 600 mg Guaifenesin (Robitussin Sf) 200 mg PO Q4H PRN PRN Reason: Cough Hydralazine HCl (Apresoline) 10 mg SLOW IVP Q4H PRN PRN Reason: Systolic BP > 180 Ceftriaxone Sodium 1 gm/ (Sodium Chloride) 100 mls @ 200 mls/hr IVPB 1400 [facility] Last Admin: 04/26/18 13:56 Dose: 100 mls Isosorbide Mononitrate (Imdur) 60 mg PO DAILY [facility] Last Admin: 04/27/18 08:49 Dose: 60 mg Labetalol HCl (Normodyne) 20 mg SLOW IVP Q4H PRN PRN Reason: Systolic BP > 180 Levothyroxine Sodium (Synthroid) 75 mcg PO 0600 [facility] Last Admin: 04/27/18 05:07 Dose: 75 mcg Loperamide HCl (Imodium) 2 mg PO PRN PRN PRN Reason: Diarrhea/Loose Stools Loratadine (Claritin) 10 mg PO DAILYPRN PRN PRN Reason: Sinus Symptoms Magnesium Hydroxide (Milk Of Magnesium) 30 ml PO DAILYPRN PRN PRN Reason: Constipation Mineral Oil/White Petrolatum (Eucerin Cream) 0 gm TOP BIDPRN PRN PRN Reason: Dry Skin Nitroglycerin (Nitrostat) 0.4 mg SL Q5MIN PRN PRN Reason: Chest Pain Ondansetron HCl (Zofran Odt) 4 mg PO Q6H PRN PRN Reason: Nausea/Vomiting Ondansetron HCl (Zofran) 4 mg IVP Q6H PRN PRN Reason: Nausea/Vomiting Phenol (Chloraseptic [place] 180 Ml Bot) 0 ml PO PRN PRN PRN Reason: Sore Throat Potassium Chloride (K-Dur) 20 meq PO BID-[facility] Last Admin: 04/27/18 08:49 Dose: 20 meq Senna (Senokot) 2 tab PO HSPRN PRN PRN Reason: Constipation Sodium Biphosphate/Sodium Phosphate ([place]le[place] Enema) 133 ml SC ONE HATTIE Sodium Chloride ([place] Nasal [place] 0.65%) 0 ml EA NARE QIDPRN PRN PRN Reason: Nasal Congestion Sodium Chloride (Flush - Normal Saline) 10 ml IVF Q12HR [facility] Last Admin: 04/27/18 08:50 Dose: 10 ml Sodium Chloride (Flush - Normal Saline) 10 ml IVF PRN PRN PRN Reason: Saline Flush Zolpidem Tartrate (Ambien) 5 mg PO HSPRN PRN PRN Reason: Insomnia
[2018-04-27] MEDS: Apixaban 2.5 MG TAB PO SCH ×2 (09:28→20:43)
[2018-04-27] MEDS ORDERED: Fleet Enema 133 ML BOT PR SCH (09:30)
[2018-04-27] MEDS: cefTRIAXone\\ROCEPHIN 1 GM in Sodium Chloride 0.9% 100 ML IVPB SCH (14:09)
--- NOTE | 2018-04-27 18:09 | CON ---
DATE OF CONSULTATION: 04/27/2018 CONSULTING PHYSICIAN: Hospitalist Service. IMPRESSION: 1. Acute kidney failure. 2. No definitive history to suggest that she has had a transient ischemic attack. PLAN: Continue anticoagulation given her atrial fibrillation. HISTORY OF PRESENT ILLNESS: Ms. Ramirez is an 87-year-old woman, who was brought in with complain ts of some generalized weakness. She denies that there was any lateralized weakness or numbness. Sh e does not report any slurred speech or difficulty with word finding. There is no associated headach e, nausea, vomiting, or vertigo reported. She was noted to have marked renal insufficiency with BUN is in the 70s. She had an echocardiogram, which showed an ejection fraction between 40% and 45% and atrial fibrillation. A CT scan of the brain did not show any acute or chronic ischemic changes. She has been started on Eliquis. PAST MEDICAL HISTORY: Includes coronary artery disease, congestive heart failure, hypothyroidism, GE RD, hypertension, and asthma. PAST SURGICAL HISTORY: Left leg amputation, appendectomy and defibrillator implantation. ALLERGIES: None. SOCIAL HISTORY: She reportedly lives at home fairly independently. She has a daughter who looks aft er. FAMILY HISTORY: Noncontributory. REVIEW OF SYSTEMS: Otherwise, negative. PHYSICAL EXAMINATION: GENERAL: This is a well-nourished elderly lady, lying in bed, in no distress. HEENT: Pupils are minimally reactive. Conjunctivae clear. Oropharynx is clear. NECK: No lymphadenopathy noted. EXTREMITIES: Multiple areas of ecchymosis over the right leg. There is left AKA. NEUROLOGIC: She was alert and cooperative. She followed commands appropriately. Her speech is flue nt and clear. Cranial nerves were intact throughout. Motor exam showed good upper extremity strengt h for her age. No tremor or dysmetria was present. She could elevate the right leg off the bed and had normal sensation. Gait was not testable. IMAGING: EKG: Atrial fibrillation. SUMMARY: This is an 87-year-old woman, who is in atrial fibrillation. She came in with complaints o f generalized weakness. Her neurologic workup at this point has been unremarkable. I agree with luann ping her on Eliquis due to the atrial fibrillation.
[2018-04-27] MEDS: Amitriptyline HCl 25 MG TAB PO SCH (20:41)
[2018-04-27] MEDS: Famotidine 20 MG TAB PO SCH (20:42)
[2018-04-27] MEDS: Atorvastatin Calcium 20 MG TAB PO SCH (20:42)
[2018-04-28 05:33] LABS: #Basophils 0.1 thou/uL (0.0-0.2); #Eosinphils 0.5 thou/uL (0.0-0.7); #Lymphocytes 1.7 thou/uL (1.20-3.40); #Monocytes 0.8 thou/uL (0.11-0.59); #Neutrophils 6.7 thou/uL (1.40-6.50); %Basophils 0.9 % (0.0-1.0); %Eosinophils 4.8 % (0.0-10.0); %Lymphocytes 17.1 % (21.0-51.0); %Monocytes 8.4 % (0.0-10.0); %Neutrophils 68.7 % (42.0-75.0); Hemoglobin 9.3 g/dL (12.0-16.0); Mean Corpuscular HGB CONC 30.9 g/dL (32.0-36.0); Mean Corpuscular Hemoglobin 23.8 pg (27.0-31.0); Mean Corpuscular Volume 76.9 fL (78.0-98.0); Mean Platelet Volume 7.3 fL (7.4-10.4); Platelet Count 265 thou/uL (130-400); RBC Distribution Width 16.2 % (11.5-14.5); Red Blood Cell (RBC) Count 3.91 mill/uL (4.20-5.40); White Blood Cell (WBC) Count 9.8 thou/uL (4.8-10.8)
[2018-04-28 05:43] LABS: Anion Gap 11 mmol/L (10-20); BUN (Urea Nitrogen) 48 mg/dL (9.8-20.1); Calc. Creatinine Clearance 36 mL/min (70-130); Calcium 9.1 mg/dL (7.8-10.44); Carbon Dioxide 29 mmol/L (23-31); Chloride 100 mmol/L (98-107); Estimated GFR-MDRD 50; Glucose 113 mg/dL (83-110); Potassium 3.5 mmol/L (3.5-5.1); Sodium 136 mmol/L (136-145)
[2018-04-28] MEDS: Levothyroxine Sodium 75 MCG TAB PO SCH (06:01)
[2018-04-28] MEDS: Carvedilol 6.25 MG TAB PO SCH ×2 (09:37→20:49)
[2018-04-28] MEDS: Potassium Chloride 20 MEQ TAB PO SCH ×2 (09:37→16:35)
[2018-04-28] MEDS: Citalopram 20 MG TAB PO SCH (09:37)
[2018-04-28] MEDS: Amiodarone 200 MG TAB PO SCH (09:37)
[2018-04-28] MEDS: Apixaban 2.5 MG TAB PO SCH ×2 (09:37→21:20)
[2018-04-28] MEDS: Gabapentin 300 MG CAP PO SCH ×2 (09:37→20:49)
--- NOTE | 2018-04-28 12:45 | PDOC.PN ---
- Subjective Encounter Start Date: 04/28/18 Encounter Start Time: 07:30 Patient seen and examined. No new complaints. No overnight events - Objective Resuscitation Status: Resuscitation Status DNR:Do Not Resuscitate MAR Reviewed: Yes Vital Signs & Weight: Vital Signs (12 hours) Temp Pulse Resp BP BP BP Pulse Ox 04/28/18 09:38 94 150/69 H 04/28/18 09:37 150/69 H 04/28/18 07:30 98.4 F 94 16 150/69 H 94 L 04/28/18 04:00 98.1 F 74 15 137/63 95 Weight Weight 135 lb I&O: 04/27/18 04/28/18 04/29/18 06:59 06:59 06:59 Intake Total 400 250 Output Total 350 200 Balance 50 50 Result Diagrams: 04/28/18 05:06 04/28/18 05:06 EKG Reviewed by me: Yes Phys Exam - Physical Examination Constitutional: NAD HEENT: PERRLA, moist MMs, sclera anicteric Neck: no JVD, supple Respiratory: no wheezing, no rales, no rhonchi Cardiovascular: no significant murmur, no rub, irregular Gastrointestinal: soft, non-tender, no distention, positive bowel sounds left aka Neurological: moves all 4 limbs Lymphatic: no nodes Psychiatric: normal affect Skin: no rash, normal turgor Dx/Plan (1) Acute kidney failure Status: Acute Comment: improving (2) Hypokalemia Code(s): E87.6 - HYPOKALEMIA Status: Acute (3) Sepsis Code(s): A41.9 - SEPSIS, UNSPECIFIED ORGANISM Status: Acute Qualifiers: Sepsis type: sepsis due to unspecified organism Qualified Code(s): A41.9 - Sepsis, unspecified organism Comment: with acute organ dysfunction (4) UTI (urinary tract infection) Status: Acute (5) Weakness generalized Code(s): R53.1 - WEAKNESS Status: Acute (6) Anxiety and depression Code(s): F41.9 - ANXIETY DISORDER, UNSPECIFIED; F32.9 - MAJOR DEPRESSIVE DISORDER, SINGLE EPISODE, UNSPECIFIED Status: Chronic (7) CAD (coronary artery disease) Code(s): I25.10 - ATHSCL HEART DISEASE OF [place] CORONARY ARTERY W/O ANG PCTRS Status: Chronic Qualifiers: Coronary Disease-Associated Artery/Lesion type: bypass graft [place] vs. transplanted heart: [place] heart Associated angina: without angina Qualified Code(s): I25.810 - Atherosclerosis of coronary artery bypass graft(s) without angina pectoris (8) Chronic anticoagulation Code(s): Z79.01 - ORACLE MANUFACTURING CONSULTANT (CURRENT) USE OF ANTICOAGULANTS Status: Chronic (9) Chronic diastolic (congestive) heart failure Code(s): I50.32 - CHRONIC DIASTOLIC (CONGESTIVE) HEART FAILURE Status: Chronic (10) Dyslipidemia Code(s): E78.5 - HYPERLIPIDEMIA, UNSPECIFIED Status: Chronic (11) H/O above knee amputation Code(s): Z89.619 - ACQUIRED ABSENCE OF UNSPECIFIED LEG ABOVE KNEE Status: Chronic (12) HTN (hypertension) Code(s): I10 - ESSENTIAL (PRIMARY) HYPERTENSION Status: Chronic Qualifiers: Hypertension type: essential hypertension Qualified Code(s): I10 - Essential (primary) hypertension (13) Hypothyroidism Code(s): E03.9 - HYPOTHYROIDISM, UNSPECIFIED Status: Chronic Qualifiers: Hypothyroidism type: unspecified Qualified Code(s): E03.9 - Hypothyroidism , unspecified (14) PVD (peripheral vascular disease) Code(s): I73.9 - PERIPHERAL VASCULAR DISEASE, UNSPECIFIED Status: Chronic (15) Paroxysmal atrial fibrillation Code(s): I48.0 - PAROXYSMAL ATRIAL FIBRILLATION Status: Chronic (16) Demand ischemia Code(s): I24.8 - OTHER FORMS OF ACUTE ISCHEMIC HEART DISEASE Status: Acute (17) Myoclonic jerking Code(s): G25.3 - MYOCLONUS Status: Acute - Plan cont current plan of care, plan discussed w/ family, 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, PT/OT , social service liaison * continue rocephin * cipro on discharge * will need placement * jerking improved * neuro recommendation appreciated * medication reviewed as below * symptomatic treatment * discussed with daughter. Review of Systems - Review of Systems Eyes: negative: Pain, Vision Change, Conjunctivae Inflammation, Eyelid Inflammation, Redness, Other ENT: negative: Ear Pain, Ear Discharge, Nose Pain, Nose Discharge, Nose Congestion, Mouth Pain, Mouth Swelling, Throat Pain, Throat Swelling, Other Respiratory: negative: Cough, Dry, Shortness of Breath, Hemoptysis, SOB with Excertion, Pleuritic Pain, Sputum, Wheezing Cardiovascular: negative: chest pain, palpitations, orthopnea, paroxysmal nocturnal dyspnea, edema, light headedness, other Gastrointestinal: negative: Nausea, Vomiting, Abdominal Pain, Diarrhea, Constipation, Melena, Hematochezia, Other Genitourinary: negative: Dysuria, Frequency, Incontinence, Hematuria, Retention , Other Musculoskeletal: negative: Neck Pain, Shoulder Pain, Arm Pain, Back Pain, Hand Pain, Leg Pain, Foot Pain, Other Skin: negative: Rash, Lesions, Abraham, Bruising, Other - Medications/Allergies Allergies/Adverse Reactions: Allergies Allergy/AdvReac Type Severity Reaction Status Date / Time No Known Allergies Allergy Verified 04/25/18 17:32 Medications: Current Medications Acetaminophen (Tylenol) 650 mg PO Q4H PRN PRN Reason: Headache/Fever or Pain Hydrocodone Bitart/Acetaminophen ([place] 5/325) 1 tab PO Q4H PRN PRN Reason: Moderate Pain (4-6) Albuterol/Ipratropium (Duoneb) 3 ml NEB [id number] PRN PRN Reason: SOB &/or Wheezing Last Admin: 04/26/18 01:33 Dose: 3 ml Amiodarone HCl (Cordarone) 200 mg PO DAILY [facility] Last Admin: 04/28/18 09:37 Dose: 200 mg Amitriptyline HCl (Elavil) [address] [facility] Last Admin: 04/27/18 20:41 Dose: 25 mg Apixaban (Eliquis) 2.5 mg PO BID [facility] Last Admin: 04/28/18 09:37 Dose: 2.5 mg Artificial Tears (Tears Naturale) 0 drop EA EYE PRN PRN PRN Reason: Dry Eyes Atorvastatin Calcium (Lipitor) 20 mg PO HS [facility] Last Admin: 04/27/18 20:42 Dose: 20 mg Calcium Carbonate (Tums) 1,000 mg PO Q4H PRN PRN Reason: Heartburn or Indigestion Carvedilol (Coreg) 6.25 mg PO BID [facility] Last Admin: 04/28/18 09:37 Dose: 6.25 mg Citalopram Hydrobromide (Celexa) 20 mg PO DAILY [facility] Last Admin: 04/28/18 09:37 Dose: 20 mg Diltiazem HCl (Cardizem Cd) 120 mg PO DAILY [facility] Last Admin: 04/28/18 09:38 Dose: 120 mg Famotidine (Pepcid) 20 mg PO 2100 [facility] Last Admin: 04/27/18 20:42 Dose: 20 mg Gabapentin (Neurontin) 600 mg PO BID [facility] Last Admin: 04/28/18 09:37 Dose: 600 mg Guaifenesin (Robitussin Sf) 200 mg PO Q4H PRN PRN Reason: Cough Hydralazine HCl (Apresoline) 10 mg SLOW IVP Q4H PRN PRN Reason: Systolic BP > 180 Ceftriaxone Sodium 1 gm/ (Sodium Chloride) 100 mls @ 200 mls/hr IVPB 1400 [facility] Last Admin: 04/27/18 14:09 Dose: 100 mls Isosorbide Mononitrate (Imdur) 60 mg PO DAILY [facility] Last Admin: 04/28/18 09:37 Dose: 60 mg Labetalol HCl (Normodyne) 20 mg SLOW IVP Q4H PRN PRN Reason: Systolic BP > 180 Levothyroxine Sodium (Synthroid) 75 mcg PO 0600 [facility] Last Admin: 04/28/18 06:01 Dose: 75 mcg Loperamide HCl (Imodium) 2 mg PO PRN PRN PRN Reason: Diarrhea/Loose Stools Loratadine (Claritin) 10 mg PO DAILYPRN PRN PRN Reason: Sinus Symptoms Magnesium Hydroxide (Milk Of Magnesium) 30 ml PO DAILYPRN PRN PRN Reason: Constipation Mineral Oil/White Petrolatum (Eucerin Cream) 0 gm TOP BIDPRN PRN PRN Reason: Dry Skin Nitroglycerin (Nitrostat) 0.4 mg SL Q5MIN PRN PRN Reason: Chest Pain Ondansetron HCl (Zofran Odt) 4 mg PO Q6H PRN PRN Reason: Nausea/Vomiting Ondansetron HCl (Zofran) 4 mg IVP Q6H PRN PRN Reason: Nausea/Vomiting Phenol (Chloraseptic [place] 180 Ml Bot) 0 ml PO PRN PRN PRN Reason: Sore Throat Potassium Chloride (K-Dur) 20 meq PO BID-[facility] Last Admin: 04/28/18 09:37 Dose: 20 meq Senna (Senokot) 2 tab PO HSPRN PRN PRN Reason: Constipation Sodium Chloride ([place] Nasal [place] 0.65%) 0 ml EA NARE QIDPRN PRN PRN Reason: Nasal Congestion Sodium Chloride (Flush - Normal Saline) 10 ml IVF Q12HR [facility] Last Admin: 04/28/18 09:38 Dose: 10 ml Sodium Chloride (Flush - Normal Saline) 10 ml IVF PRN PRN PRN Reason: Saline Flush Zolpidem Tartrate (Ambien) 5 mg PO HSPRN PRN PRN Reason: Insomnia
[2018-04-28] MEDS: cefTRIAXone\\ROCEPHIN 1 GM in Sodium Chloride 0.9% 100 ML IVPB SCH (13:55)
[2018-04-28] MEDS: Atorvastatin Calcium 20 MG TAB PO SCH (20:48)
[2018-04-28] MEDS: Amitriptyline HCl 25 MG TAB PO SCH (20:49)
[2018-04-28] MEDS: Famotidine 20 MG TAB PO SCH (20:49)
[2018-04-29] MEDS: Levothyroxine Sodium 75 MCG TAB PO SCH (05:40)
[2018-04-29] MEDS: Amiodarone 200 MG TAB PO SCH (08:35)
[2018-04-29] MEDS: Citalopram 20 MG TAB PO SCH (08:35)
[2018-04-29] MEDS: Gabapentin 300 MG CAP PO SCH ×2 (08:35→20:36)
[2018-04-29] MEDS: Potassium Chloride 20 MEQ TAB PO SCH ×2 (08:36→18:00)
[2018-04-29] MEDS: Carvedilol 6.25 MG TAB PO SCH ×2 (08:36→20:38)
[2018-04-29] MEDS: Apixaban 2.5 MG TAB PO SCH ×2 (08:38→20:38)
--- NOTE | 2018-04-29 10:39 | PDOC.PN ---
- Subjective Encounter Start Date: 04/29/18 Encounter Start Time: 08:10 Patient seen and examined. No new complaints. No overnight events - Objective Resuscitation Status: Resuscitation Status DNR:Do Not Resuscitate MAR Reviewed: Yes Vital Signs & Weight: Vital Signs (12 hours) Temp Pulse Resp BP BP BP Pulse Ox 04/29/18 08:38 77 140/76 04/29/18 08:36 140/76 04/29/18 08:00 97.3 F L 77 16 140/76 94 L 04/29/18 03:06 98.7 F 77 14 119/76 93 L Weight Weight 135 lb I&O: 04/28/18 04/29/18 04/30/18 06:59 06:59 06:59 Intake Total 250 150 249 Output Total 200 Balance 50 150 249 Result Diagrams: 04/28/18 05:06 04/28/18 05:06 EKG Reviewed by me: Yes (nsr) Phys Exam - Physical Examination Constitutional: NAD HEENT: PERRLA, moist MMs, sclera anicteric Neck: no JVD, supple Respiratory: no wheezing, no rales, no rhonchi Cardiovascular: no significant murmur, no rub, irregular Gastrointestinal: soft, non-tender, no distention, positive bowel sounds left AKA, right leg skin lesion noted, stable Neurological: non-focal, normal sensation Psychiatric: normal affect, A&O x 3 Skin: no rash, normal turgor Dx/Plan (1) Acute kidney failure Status: Acute Comment: improving (2) Hypokalemia Code(s): E87.6 - HYPOKALEMIA Status: Acute (3) Sepsis Code(s): A41.9 - SEPSIS, UNSPECIFIED ORGANISM Status: Acute Qualifiers: Sepsis type: sepsis due to unspecified organism Qualified Code(s): A41.9 - Sepsis, unspecified organism Comment: with acute organ dysfunction (4) UTI (urinary tract infection) Status: Acute (5) Weakness generalized Code(s): R53.1 - WEAKNESS Status: Acute (6) Anxiety and depression Code(s): F41.9 - ANXIETY DISORDER, UNSPECIFIED; F32.9 - MAJOR DEPRESSIVE DISORDER, SINGLE EPISODE, UNSPECIFIED Status: Chronic (7) CAD (coronary artery disease) Code(s): I25.10 - ATHSCL HEART DISEASE OF [place] CORONARY ARTERY W/O ANG PCTRS Status: Chronic Qualifiers: Coronary Disease-Associated Artery/Lesion type: bypass graft [place] vs. transplanted heart: [place] heart Associated angina: without angina Qualified Code(s): I25.810 - Atherosclerosis of coronary artery bypass graft(s) without angina pectoris (8) Chronic anticoagulation Code(s): Z79.01 - PRODUCTION LINE (CURRENT) USE OF ANTICOAGULANTS Status: Chronic (9) Chronic diastolic (congestive) heart failure Code(s): I50.32 - CHRONIC DIASTOLIC (CONGESTIVE) HEART FAILURE Status: Chronic (10) Dyslipidemia Code(s): E78.5 - HYPERLIPIDEMIA, UNSPECIFIED Status: Chronic (11) H/O above knee amputation Code(s): Z89.619 - ACQUIRED ABSENCE OF UNSPECIFIED LEG ABOVE KNEE Status: Chronic (12) HTN (hypertension) Code(s): I10 - ESSENTIAL (PRIMARY) HYPERTENSION Status: Chronic Qualifiers: Hypertension type: essential hypertension Qualified Code(s): I10 - Essential (primary) hypertension (13) Hypothyroidism Code(s): E03.9 - HYPOTHYROIDISM, UNSPECIFIED Status: Chronic Qualifiers: Hypothyroidism type: unspecified Qualified Code(s): E03.9 - Hypothyroidism , unspecified (14) PVD (peripheral vascular disease) Code(s): I73.9 - PERIPHERAL VASCULAR DISEASE, UNSPECIFIED Status: Chronic (15) Paroxysmal atrial fibrillation Code(s): I48.0 - PAROXYSMAL ATRIAL FIBRILLATION Status: Chronic (16) Demand ischemia Code(s): I24.8 - OTHER FORMS OF ACUTE ISCHEMIC HEART DISEASE Status: Acute (17) Myoclonic jerking Code(s): G25.3 - MYOCLONUS Status: Acute - Plan cont current plan of care, 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, PT/OT, social insurance analyst * continue current IV rocephin * on discharge oral levaquin * await placement * medication reviewed as below * symptomatic treatment. Review of Systems - Review of Systems Eyes: negative: Pain, Vision Change, Conjunctivae Inflammation, Eyelid Inflammation, Redness, Other ENT: negative: Ear Pain, Ear Discharge, Nose Pain, Nose Discharge, Nose Congestion, Mouth Pain, Mouth Swelling, Throat Pain, Throat Swelling, Other Respiratory: negative: Cough, Dry, Shortness of Breath, Hemoptysis, SOB with Excertion, Pleuritic Pain, Sputum, Wheezing Cardiovascular: negative: chest pain, palpitations, orthopnea, paroxysmal nocturnal dyspnea, edema, light headedness, other Gastrointestinal: negative: Nausea, Vomiting, Abdominal Pain, Diarrhea, Constipation, Melena, Hematochezia, Other Genitourinary: negative: Dysuria, Frequency, Incontinence, Hematuria, Retention , Other Musculoskeletal: negative: Neck Pain, Shoulder Pain, Arm Pain, Back Pain, Hand Pain, Leg Pain, Foot Pain, Other Skin: negative: Rash, Lesions, Abraham, Bruising, Other - Medications/Allergies Allergies/Adverse Reactions: Allergies Allergy/AdvReac Type Severity Reaction Status Date / Time No Known Allergies Allergy Verified 04/25/18 17:32 Medications: Current Medications Acetaminophen (Tylenol) 650 mg PO Q4H PRN PRN Reason: Headache/Fever or Pain Hydrocodone Bitart/Acetaminophen ([place] 5/325) 1 tab PO Q4H PRN PRN Reason: Moderate Pain (4-6) Albuterol/Ipratropium (Duoneb) 3 ml NEB [id number] PRN PRN Reason: SOB &/or Wheezing Last Admin: 04/26/18 01:33 Dose: 3 ml Amiodarone HCl (Cordarone) 200 mg PO DAILY [facility] Last Admin: 04/29/18 08:35 Dose: 200 mg Amitriptyline HCl (Elavil) 25 mg PO [facility] Last Admin: 04/28/18 20:49 Dose: 25 mg Apixaban (Eliquis) 2.5 mg PO BID [facility] Last Admin: 04/29/18 08:38 Dose: 2.5 mg Artificial Tears (Tears Naturale) 0 drop EA EYE PRN PRN PRN Reason: Dry Eyes Atorvastatin Calcium (Lipitor) 20 mg PO HS [facility] Last Admin: 04/28/18 20:48 Dose: 20 mg Calcium Carbonate (Tums) 1,000 mg PO Q4H PRN PRN Reason: Heartburn or Indigestion Carvedilol (Coreg) 6.25 mg PO BID [facility] Last Admin: 04/29/18 08:36 Dose: 6.25 mg Citalopram Hydrobromide (Celexa) 20 mg PO DAILY [facility] Last Admin: 04/29/18 08:35 Dose: 20 mg Diltiazem HCl (Cardizem Cd) 120 mg PO DAILY [facility] Last Admin: 04/29/18 08:38 Dose: 120 mg Famotidine (Pepcid) 20 mg PO 2100 [facility] Last Admin: 04/28/18 20:49 Dose: 20 mg Gabapentin (Neurontin) 600 mg PO BID [facility] Last Admin: 04/29/18 08:35 Dose: 600 mg Guaifenesin (Robitussin Sf) 200 mg PO Q4H PRN PRN Reason: Cough Hydralazine HCl (Apresoline) 10 mg SLOW IVP Q4H PRN PRN Reason: Systolic BP > 180 Ceftriaxone Sodium 1 gm/ (Sodium Chloride) 100 mls @ 200 mls/hr IVPB 1400 [facility] Last Admin: 04/28/18 13:55 Dose: 100 mls Isosorbide Mononitrate (Imdur) 60 mg PO DAILY [facility] Last Admin: 04/29/18 08:40 Dose: 60 mg Labetalol HCl (Normodyne) 20 mg SLOW IVP Q4H PRN PRN Reason: Systolic BP > 180 Levothyroxine Sodium (Synthroid) 75 mcg PO 0600 [facility] Last Admin: 04/29/18 05:40 Dose: 75 mcg Loperamide HCl (Imodium) 2 mg PO PRN PRN PRN Reason: Diarrhea/Loose Stools Loratadine (Claritin) 10 mg PO DAILYPRN PRN PRN Reason: Sinus Symptoms Magnesium Hydroxide (Milk Of Magnesium) 30 ml PO DAILYPRN PRN PRN Reason: Constipation Mineral Oil/White Petrolatum (Eucerin Cream) 0 gm TOP BIDPRN PRN PRN Reason: Dry Skin Nitroglycerin (Nitrostat) 0.4 mg SL Q5MIN PRN PRN Reason: Chest Pain Ondansetron HCl (Zofran Odt) 4 mg PO Q6H PRN PRN Reason: Nausea/Vomiting Ondansetron HCl (Zofran) 4 mg IVP Q6H PRN PRN Reason: Nausea/Vomiting Phenol (Chloraseptic [place] 180 Ml Bot) 0 ml PO PRN PRN PRN Reason: Sore Throat Potassium Chloride (K-Dur) 20 meq PO BID-[facility] Last Admin: 04/29/18 08:36 Dose: 20 meq Senna (Senokot) 2 tab PO HSPRN PRN PRN Reason: Constipation Sodium Chloride ([place] Nasal [place] 0.65%) 0 ml EA NARE QIDPRN PRN PRN Reason: Nasal Congestion Sodium Chloride (Flush - Normal Saline) 10 ml IVF Q12HR [facility] Last Admin: 04/29/18 08:40 Dose: 10 ml Sodium Chloride (Flush - Normal Saline) 10 ml IVF PRN PRN PRN Reason: Saline Flush Zolpidem Tartrate (Ambien) 5 mg PO HSPRN PRN PRN Reason: Insomnia
[2018-04-29] MEDS: cefTRIAXone\\ROCEPHIN 1 GM in Sodium Chloride 0.9% 100 ML IVPB SCH (13:34)
[2018-04-29] MEDS ORDERED: Polyethylene Glycol 3350 17 GM Packet PO SCH (19:45)
[2018-04-29] MEDS: Atorvastatin Calcium 20 MG TAB PO SCH (20:36)
[2018-04-29] MEDS: Famotidine 20 MG TAB PO SCH (20:36)
[2018-04-29] MEDS: Amitriptyline HCl 25 MG TAB PO SCH (20:36)
[2018-04-30] MEDS: Levothyroxine Sodium 75 MCG TAB PO SCH (05:56)
[2018-04-30] MEDS: Amiodarone 200 MG TAB PO SCH (09:08)
[2018-04-30] MEDS: Gabapentin 300 MG CAP PO SCH ×2 (09:08→20:04)
[2018-04-30] MEDS: Potassium Chloride 20 MEQ TAB PO SCH ×2 (09:08→16:23)
[2018-04-30] MEDS: Carvedilol 6.25 MG TAB PO SCH ×2 (09:08→20:04)
[2018-04-30] MEDS: Citalopram 20 MG TAB PO SCH (09:08)
[2018-04-30] MEDS: Polyethylene Glycol 3350 17 GM Packet PO SCH ×2 (09:09→20:04)
--- NOTE | 2018-04-30 10:23 | DIS ---
PRIMARY CARE PHYSICIAN: Dr. Sharlene Mg DATE OF ADMISSION: 04/25/2018 DATE OF DISCHARGE: 04/30/2018 DISCHARGE DISPOSITION: [facility]. PRIMARY DISCHARGE DIAGNOSES: 1. Acute kidney failure, improved. 2. Sepsis with acute organ dysfunction. 3. Demand ischemia of myocardium. 4. Hypokalemia, corrected. 5. Myoclonic jerking due to abnormal electrolytes. 6. Urinary tract infection. 7. Generalized weakness. SECONDARY DISCHARGE DIAGNOSES: Peripheral vascular disease, paroxysmal atrial fibrillation, hypothyroidism, hypertension, history of left above knee amputation, dyslipidemia, chronic diastolic heart failure, chronic anticoagulation with Eliquis, coronary artery disease, anxiety and depression. PRIMARY PROCEDURE/OPERATION: None. RADIOLOGICAL INVESTIGATION: Chest x-ray was normal. CT brain was negative for any acute process. Echocardiography showed EF 40-45%. SIGNIFICANT LABORATORY DATA: WBC 9.8, hemoglobin 9.3, platelet 265. Sodium 136 , potassium 3.5, BUN 48, creatinine 1.04, calcium 9.1. LFT normal. Urinalysis suggestive of UTI. Urine culture grew Streptococcus. DISCHARGE MEDICATIONS: Amitriptyline 25 mg p.o. at bedtime, Eliquis 2.5 mg p.o. b.i.d., Lipitor 20 mg p.o. at bedtime, Coreg 6.25 mg p.o. b.i.d., Celexa 20 mg p.o. daily, Cartia XT 120 mg p.o. daily, gabapentin 600 mg p.o. b.i.d., Imdur 60 mg p.o. daily, Synthroid 75 mcg p.o. daily, Cordarone 200 mg p.o. daily , Levaquin 500 mg p.o. daily for 5 more days, lisinopril 2.5 mg p.o. daily, torsemide 20 mg p.o. daily. CONTRAINDICATIONS: None. CODE STATUS: DNR. INPATIENT CONSULTANTS: Dr. Enmanuel Love as consulted for myoclonic jerking. DISCHARGE PLAN: Post hospital, the patient is discharged to [facility]. Subsequently, the patient will follow up with primary care physician. HOSPITAL COURSE: An 87-year-old female who was admitted by me on 04/25/2018. Please see my HPI for further detail. On admission, the patient was brought to ER for generalized weakness. She was living at home. She was trying to get out of bed and to go to wheelchair and she fell down and after that she was not able to get up to the wheelchair because of overall weakness. She did not have any syncopal episode. She was feeling chills at home. She was found with urinary tract infection. The patient had diarrhea initially, but that was resolved without any intervention. The patient had acute kidney failure with creatinine 2.09. She was given IV fluid and with that, the patient's renal function improved to normal. She had elevated troponin due to demand ischemia. She had sepsis which she was treated with IV Rocephin while in hospital. Her urine culture grew Streptococcus and based on culture and sensitivity result, we changed to levofloxacin for another 5 days. The patient was feeling overall weak and based on PT, OT evaluation and family recommendation, the patient was requiring care home home which we added with help of correctional case manager. By the time of discharge, the patient's renal function improved. Upon discharge , we are continuing all her previous medications. While in hospital we have to hold her torsemide. When we were giving her IV fluid, she was not tolerating IV fluid and that is why we stopped IV fluid. Despite stopping IV fluid her renal function continued to improve while in hospital. She will continue all above-mentioned medications. She will need further adjustment in medication if needed, which will be done with help of primary care physician. When we did echocardiography, we found systolic dysfunction and that is why we added lisinopril. This patient was having myoclonic jerking which was related with metabolic parameters. We consulted Neurology and they recommended to do nothing and her myoclonic jerking also improved. The patient is seen and examined at bedside today. Review of systems reviewed with her and negative. Plan of care discussed with the patient's daughter on phone. PHYSICAL EXAMINATION: VITAL SIGNS: Currently, temperature 98.3, pulse 77, respiratory rate 18, saturation 93% on room air, blood pressure 137/70, weight 138 pounds. GENERAL: The patient is currently alert, awake, no obvious acute distress. HEAD: Normocephalic, atraumatic. EYES: Pupils round, reactive to light. Extraocular muscle intact. ENT: Oropharynx within normal limits. Moist mucous membranes. No oral lesion , no pharyngeal erythema. EXTREMITIES: Left AKA, right extremity has multiple skin lesions, but which is stable, which was present prior to admission. NEUROLOGIC: Nonfocal examination. Paperwork for discharge done. Discharge medication reconciliation done. MIKE
[2018-04-30] MEDS: Apixaban 2.5 MG TAB PO SCH ×2 (10:25→20:04)
--- NOTE | 2018-04-30 13:56 | PDOC.PN ---
- Subjective Encounter Start Date: 04/30/18 Encounter Start Time: 13:54 Patient seen and examined. No new complaints. No overnight events - Objective Resuscitation Status: Resuscitation Status DNR:Do Not Resuscitate MAR Reviewed: Yes Vital Signs & Weight: Vital Signs (12 hours) Temp Pulse Resp BP BP BP Pulse Ox 04/30/18 11:33 97.6 F 61 17 135/67 95 04/30/18 09:08 77 137/70 04/30/18 09:02 98.3 F 77 18 137/70 93 L 04/30/18 04:31 98.9 F 88 18 110/55 L 92 L 04/30/18 04:00 98 F 65 18 126/61 97 Weight Weight 138 lb 8 oz I&O: 04/29/18 04/30/18 05/01/18 06:59 06:59 06:59 Intake Total 150 1049 480 Output Total 400 Balance 150 649 480 Result Diagrams: 04/28/18 05:06 04/28/18 05:06 EKG Reviewed by me: Yes (nsr) Phys Exam - Physical Examination Constitutional: NAD HEENT: PERRLA, moist MMs, sclera anicteric Neck: no JVD, supple Respiratory: no wheezing, no rales, no rhonchi Cardiovascular: RRR, no significant murmur, no rub Gastrointestinal: soft, non-tender, no distention, positive bowel sounds Musculoskeletal: pulses present left AKA Neurological: non-focal, normal sensation, moves all 4 limbs Dx/Plan (1) Acute kidney failure Status: Acute Comment: improving (2) Hypokalemia Code(s): E87.6 - HYPOKALEMIA Status: Acute (3) Sepsis Code(s): A41.9 - SEPSIS, UNSPECIFIED ORGANISM Status: Acute Qualifiers: Sepsis type: sepsis due to unspecified organism Qualified Code(s): A41.9 - Sepsis, unspecified organism Comment: with acute organ dysfunction (4) UTI (urinary tract infection) Status: Acute (5) Weakness generalized Code(s): R53.1 - WEAKNESS Status: Acute (6) Anxiety and depression Code(s): F41.9 - ANXIETY DISORDER, UNSPECIFIED; F32.9 - MAJOR DEPRESSIVE DISORDER, SINGLE EPISODE, UNSPECIFIED Status: Chronic (7) CAD (coronary artery disease) Code(s): I25.10 - ATHSCL HEART DISEASE OF [place] CORONARY ARTERY W/O ANG PCTRS Status: Chronic Qualifiers: Coronary Disease-Associated Artery/Lesion type: bypass graft [place] vs. transplanted heart: [place] heart Associated angina: without angina Qualified Code(s): I25.810 - Atherosclerosis of coronary artery bypass graft(s) without angina pectoris (8) Chronic anticoagulation Code(s): Z79.01 - [facility] (CURRENT) USE OF ANTICOAGULANTS Status: Chronic (9) Chronic diastolic (congestive) heart failure Code(s): I50.32 - CHRONIC DIASTOLIC (CONGESTIVE) HEART FAILURE Status: Chronic (10) Dyslipidemia Code(s): E78.5 - HYPERLIPIDEMIA, UNSPECIFIED Status: Chronic (11) H/O above knee amputation Code(s): Z89.619 - ACQUIRED ABSENCE OF UNSPECIFIED LEG ABOVE KNEE Status: Chronic (12) HTN (hypertension) Code(s): I10 - ESSENTIAL (PRIMARY) HYPERTENSION Status: Chronic Qualifiers: Hypertension type: essential hypertension Qualified Code(s): I10 - Essential (primary) hypertension (13) Hypothyroidism Code(s): E03.9 - HYPOTHYROIDISM, UNSPECIFIED Status: Chronic Qualifiers: Hypothyroidism type: unspecified Qualified Code(s): E03.9 - Hypothyroidism , unspecified (14) PVD (peripheral vascular disease) Code(s): I73.9 - PERIPHERAL VASCULAR DISEASE, UNSPECIFIED Status: Chronic (15) Paroxysmal atrial fibrillation Code(s): I48.0 - PAROXYSMAL ATRIAL FIBRILLATION Status: Chronic (16) Demand ischemia Code(s): I24.8 - OTHER FORMS OF ACUTE ISCHEMIC HEART DISEASE Status: Acute (17) Myoclonic jerking Code(s): G25.3 - MYOCLONUS Status: Acute - Plan cont current plan of care, plan discussed w/ family, 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, 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 * pt was discharged today, but [facility] does not have available bed till end of this week * [facility] would have available bed tomorrow * so she can not go today * will transfer to medical * discharge summery and paper work already done * medication reviewed as below * symptomatic treatment Review of Systems - Review of Systems Eyes: negative: Pain, Vision Change, Conjunctivae Inflammation, Eyelid Inflammation, Redness, Other ENT: negative: Ear Pain, Ear Discharge, Nose Pain, Nose Discharge, Nose Congestion, Mouth Pain, Mouth Swelling, Throat Pain, Throat Swelling, Other Respiratory: negative: Cough, Dry, Shortness of Breath, Hemoptysis, SOB with Excertion, Pleuritic Pain, Sputum, Wheezing Cardiovascular: negative: chest pain, palpitations, orthopnea, paroxysmal nocturnal dyspnea, edema, light headedness, other Gastrointestinal: negative: Nausea, Vomiting, Abdominal Pain, Diarrhea, Constipation, Melena, Hematochezia, Other Genitourinary: negative: Dysuria, Frequency, Incontinence, Hematuria, Retention , Other Musculoskeletal: negative: Neck Pain, Shoulder Pain, Arm Pain, Back Pain, Hand Pain, Leg Pain, Foot Pain, Other Skin: negative: Rash, Lesions, Abraham, Bruising, Other - Medications/Allergies Allergies/Adverse Reactions: Allergies Allergy/AdvReac Type Severity Reaction Status Date / Time No Known Allergies Allergy Verified 04/25/18 17:32 Medications: Current Medications Acetaminophen (Tylenol) 650 mg PO Q4H PRN PRN Reason: Headache/Fever or Pain Hydrocodone Bitart/Acetaminophen ([place] 5/325) 1 tab PO Q4H PRN PRN Reason: Moderate Pain (4-6) Albuterol/Ipratropium (Duoneb) 3 ml NEB [id number] PRN PRN Reason: SOB &/or Wheezing Last Admin: 04/26/18 01:33 Dose: 3 ml Amiodarone HCl (Cordarone) 200 mg PO DAILY [facility] Last Admin: 04/30/18 09:08 Dose: 200 mg Amitriptyline HCl (Elavil) 25 mg PO [facility] Last Admin: 04/29/18 20:36 Dose: 25 mg Apixaban (Eliquis) 2.5 mg PO BID [facility] Last Admin: 04/30/18 10:25 Dose: 2.5 mg Artificial Tears (Tears Naturale) 0 drop EA EYE PRN PRN PRN Reason: Dry Eyes Atorvastatin Calcium (Lipitor) 20 mg PO [facility] Last Admin: 04/29/18 20:36 Dose: 20 mg Calcium Carbonate (Tums) 1,000 mg PO Q4H PRN PRN Reason: Heartburn or Indigestion Carvedilol (Coreg) 6.25 mg PO BID [facility] Last Admin: 04/30/18 09:08 Dose: 6.25 mg Citalopram Hydrobromide (Celexa) 20 mg PO DAILY [facility] Last Admin: 04/30/18 09:08 Dose: 20 mg Diltiazem HCl (Cardizem Cd) 120 mg PO DAILY [facility] Last Admin: 04/30/18 09:08 Dose: 120 mg Famotidine (Pepcid) 20 mg PO 2100 [facility] Last Admin: 04/29/18 20:36 Dose: 20 mg Gabapentin (Neurontin) 600 mg PO BID [facility] Last Admin: 04/30/18 09:08 Dose: 600 mg Guaifenesin (Robitussin Sf) 200 mg PO Q4H PRN PRN Reason: Cough Hydralazine HCl (Apresoline) 10 mg SLOW IVP Q4H PRN PRN Reason: Systolic BP > 180 Ceftriaxone Sodium 1 gm/ (Sodium Chloride) 100 mls @ 200 mls/hr IVPB 1400 [facility] Last Admin: 04/29/18 13:34 Dose: 100 mls Isosorbide Mononitrate (Imdur) 60 mg PO DAILY [facility] Last Admin: 04/30/18 09:08 Dose: 60 mg Labetalol HCl (Normodyne) 20 mg SLOW IVP Q4H PRN PRN Reason: Systolic BP > 180 Levothyroxine Sodium (Synthroid) 75 mcg PO 0600 [facility] Last Admin: 04/30/18 05:56 Dose: 75 mcg Loperamide HCl (Imodium) 2 mg PO PRN PRN PRN Reason: Diarrhea/Loose Stools Loratadine (Claritin) 10 mg PO DAILYPRN PRN PRN Reason: Sinus Symptoms Magnesium Hydroxide (Milk Of Magnesium) 30 ml PO DAILYPRN PRN PRN Reason: Constipation Mineral Oil/White Petrolatum (Eucerin Cream) 0 gm TOP BIDPRN PRN PRN Reason: Dry Skin Nitroglycerin (Nitrostat) 0.4 mg SL Q5MIN PRN PRN Reason: Chest Pain Ondansetron HCl (Zofran Odt) 4 mg PO Q6H PRN PRN Reason: Nausea/Vomiting Ondansetron HCl (Zofran) 4 mg IVP Q6H PRN PRN Reason: Nausea/Vomiting Phenol (Chloraseptic [place] 180 Ml Bot) 0 ml PO PRN PRN PRN Reason: Sore Throat Polyethylene Glycol (Miralax) 17 gm PO BID [facility] Last Admin: 04/30/18 09:09 Dose: 17 gm Potassium Chloride (K-Dur) 20 meq PO BID-WM [facility] Last Admin: 04/30/18 09:08 Dose: 20 meq Senna (Senokot) 2 tab PO HSPRN PRN PRN Reason: Constipation Sodium Chloride ([place] Nasal [place] 0.65%) 0 ml EA NARE QIDPRN PRN PRN Reason: Nasal Congestion Sodium Chloride (Flush - Normal Saline) 10 ml IVF Q12HR [facility] Last Admin: 04/30/18 09:09 Dose: 10 ml Sodium Chloride (Flush - Normal Saline) 10 ml IVF PRN PRN PRN Reason: Saline Flush Zolpidem Tartrate (Ambien) 5 mg PO HSPRN PRN PRN Reason: Insomnia
[2018-04-30] MEDS: cefTRIAXone\\ROCEPHIN 1 GM in Sodium Chloride 0.9% 100 ML IVPB SCH (14:04)
[2018-04-30] MEDS: Atorvastatin Calcium 20 MG TAB PO SCH (20:04)
[2018-04-30] MEDS: Amitriptyline HCl 25 MG TAB PO SCH (20:04)
[2018-04-30] MEDS: Famotidine 20 MG TAB PO SCH (20:04)
[2018-05-01] MEDS: Levothyroxine Sodium 75 MCG TAB PO SCH (06:11)
[2018-05-01] MEDS: Potassium Chloride 20 MEQ TAB PO SCH ×2 (08:17→17:05)
[2018-05-01] MEDS: Amiodarone 200 MG TAB PO SCH (08:17)
[2018-05-01] MEDS: Carvedilol 6.25 MG TAB PO SCH ×2 (08:18→21:18)
[2018-05-01] MEDS: Gabapentin 300 MG CAP PO SCH ×2 (08:18→21:18)
[2018-05-01] MEDS: Citalopram 20 MG TAB PO SCH (08:19)
[2018-05-01] MEDS: Polyethylene Glycol 3350 17 GM Packet PO SCH ×2 (08:20→21:19)
--- NOTE | 2018-05-01 09:48 | PDOC.PN ---
- Subjective Encounter Start Date: 05/01/18 Encounter Start Time: 07:40 Patient seen and examined. No new complaints. No overnight events pt is eagerly waiting for snu placement she is doing well - Objective Resuscitation Status: Resuscitation Status DNR:Do Not Resuscitate MAR Reviewed: Yes Vital Signs & Weight: Vital Signs (12 hours) Temp Pulse Resp BP BP BP Pulse Ox 05/01/18 08:19 103 H 130/67 05/01/18 08:18 130/67 05/01/18 08:00 97.6 F 103 H 18 96 05/01/18 07:58 97.6 F 103 H 20 130/67 96 05/01/18 04:00 98.0 F 67 20 120/64 96 05/01/18 00:00 98.1 F 73 20 122/74 95 Weight Weight 138 lb 8 oz I&O: 04/30/18 05/01/18 05/02/18 06:59 06:59 06:59 Intake Total 1049 1440 Output Total 400 900 Balance 649 540 Result Diagrams: 04/28/18 05:06 04/28/18 05:06 Phys Exam - Physical Examination Constitutional: NAD HEENT: PERRLA, moist MMs, sclera anicteric Neck: no JVD, supple Respiratory: no wheezing, no rales, no rhonchi Cardiovascular: RRR, no significant murmur, no rub Gastrointestinal: soft, non-tender, no distention, positive bowel sounds Musculoskeletal: no edema, pulses present left AKA, skin lesion on right leg Psychiatric: normal affect, A&O x 3 Skin: normal turgor Dx/Plan (1) Acute kidney failure Status: Resolved Comment: improving (2) Hypokalemia Code(s): E87.6 - HYPOKALEMIA Status: Resolved (3) Sepsis Code(s): A41.9 - SEPSIS, UNSPECIFIED ORGANISM Status: Acute Qualifiers: Sepsis type: sepsis due to unspecified organism Qualified Code(s): A41.9 - Sepsis, unspecified organism Comment: with acute organ dysfunction (4) UTI (urinary tract infection) Status: Acute (5) Weakness generalized Code(s): R53.1 - WEAKNESS Status: Acute (6) Anxiety and depression Code(s): F41.9 - ANXIETY DISORDER, UNSPECIFIED; F32.9 - MAJOR DEPRESSIVE DISORDER, SINGLE EPISODE, UNSPECIFIED Status: Chronic (7) CAD (coronary artery disease) Code(s): I25.10 - ATHSCL HEART DISEASE OF [place] CORONARY ARTERY W/O ANG PCTRS Status: Chronic Qualifiers: Coronary Disease-Associated Artery/Lesion type: bypass graft [place] vs. transplanted heart: [place] heart Associated angina: without angina Qualified Code(s): I25.810 - Atherosclerosis of coronary artery bypass graft(s) without angina pectoris (8) Chronic anticoagulation Code(s): Z79.01 - [facility] (CURRENT) USE OF ANTICOAGULANTS Status: Chronic (9) Chronic diastolic (congestive) heart failure Code(s): I50.32 - CHRONIC DIASTOLIC (CONGESTIVE) HEART FAILURE Status: Chronic (10) Dyslipidemia Code(s): E78.5 - HYPERLIPIDEMIA, UNSPECIFIED Status: Chronic (11) H/O above knee amputation Code(s): Z89.619 - ACQUIRED ABSENCE OF UNSPECIFIED LEG ABOVE KNEE Status: Chronic (12) HTN (hypertension) Code(s): I10 - ESSENTIAL (PRIMARY) HYPERTENSION Status: Chronic Qualifiers: Hypertension type: essential hypertension Qualified Code(s): I10 - Essential (primary) hypertension (13) Hypothyroidism Code(s): E03.9 - HYPOTHYROIDISM, UNSPECIFIED Status: Chronic Qualifiers: Hypothyroidism type: unspecified Qualified Code(s): E03.9 - Hypothyroidism , unspecified (14) PVD (peripheral vascular disease) Code(s): I73.9 - PERIPHERAL VASCULAR DISEASE, UNSPECIFIED Status: Chronic (15) Paroxysmal atrial fibrillation Code(s): I48.0 - PAROXYSMAL ATRIAL FIBRILLATION Status: Chronic (16) Demand ischemia Code(s): I24.8 - OTHER FORMS OF ACUTE ISCHEMIC HEART DISEASE Status: Acute (17) Myoclonic jerking Code(s): G25.3 - MYOCLONUS Status: Resolved - Plan cont current plan of care, 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 * meanwhile continue current medical therapy * she is stable * paperwork and discharge summery done Review of Systems - Review of Systems Eyes: negative: Pain, Vision Change, Conjunctivae Inflammation, Eyelid Inflammation, Redness, Other ENT: negative: Ear Pain, Ear Discharge, Nose Pain, Nose Discharge, Nose Congestion, Mouth Pain, Mouth Swelling, Throat Pain, Throat Swelling, Other Respiratory: negative: Cough, Dry, Shortness of Breath, Hemoptysis, SOB with Excertion, Pleuritic Pain, Sputum, Wheezing Cardiovascular: negative: chest pain, palpitations, orthopnea, paroxysmal nocturnal dyspnea, edema, light headedness, other Gastrointestinal: negative: Nausea, Vomiting, Abdominal Pain, Diarrhea, Constipation, Melena, Hematochezia, Other Genitourinary: negative: Dysuria, Frequency, Incontinence, Hematuria, Retention , Other Musculoskeletal: negative: Neck Pain, Shoulder Pain, Arm Pain, Back Pain, Hand Pain, Leg Pain, Foot Pain, Other - Medications/Allergies Allergies/Adverse Reactions: Allergies Allergy/AdvReac Type Severity Reaction Status Date / Time No Known Allergies Allergy Verified 04/25/18 17:32 Medications: Current Medications Acetaminophen (Tylenol) 650 mg PO Q4H PRN PRN Reason: Headache/Fever or Pain Hydrocodone Bitart/Acetaminophen ([place] 5/325) 1 tab PO Q4H PRN PRN Reason: Moderate Pain (4-6) Albuterol/Ipratropium (Duoneb) 3 ml NEB [id number] PRN PRN Reason: SOB &/or Wheezing Last Admin: 04/26/18 01:33 Dose: 3 ml Amiodarone HCl (Cordarone) 200 mg PO DAILY [facility] Last Admin: 05/01/18 08:17 Dose: 200 mg Amitriptyline HCl (Elavil) 25 mg PO HS [facility] Last Admin: 04/30/18 20:04 Dose: 25 mg Apixaban (Eliquis) 2.5 mg PO BID [facility] Last Admin: 04/30/18 20:04 Dose: 2.5 mg Artificial Tears (Tears Naturale) 0 drop EA EYE PRN PRN PRN Reason: Dry Eyes Atorvastatin Calcium (Lipitor) 20 mg PO HS [facility] Last Admin: 04/30/18 20:04 Dose: 20 mg Calcium Carbonate (Tums) 1,000 mg PO Q4H PRN PRN Reason: Heartburn or Indigestion Carvedilol (Coreg) 6.25 mg PO BID [facility] Last Admin: 05/01/18 08:18 Dose: 6.25 mg Citalopram Hydrobromide (Celexa) 20 mg PO DAILY [facility] Last Admin: 05/01/18 08:19 Dose: 20 mg Diltiazem HCl (Cardizem Cd) 120 mg PO DAILY [facility] Last Admin: 05/01/18 08:19 Dose: 120 mg Famotidine (Pepcid) 20 mg PO 2100 [facility] Last Admin: 04/30/18 20:04 Dose: 20 mg Gabapentin (Neurontin) 600 mg PO BID [facility] Last Admin: 05/01/18 08:18 Dose: 600 mg Guaifenesin (Robitussin Sf) 200 mg PO Q4H PRN PRN Reason: Cough Hydralazine HCl (Apresoline) 10 mg SLOW IVP Q4H PRN PRN Reason: Systolic BP > 180 Ceftriaxone Sodium 1 gm/ (Sodium Chloride) 100 mls @ 200 mls/hr IVPB 1400 [facility] Last Admin: 04/30/18 14:04 Dose: 100 mls Isosorbide Mononitrate (Imdur) 60 mg PO DAILY [facility] Last Admin: 05/01/18 08:19 Dose: 60 mg Labetalol HCl (Normodyne) 20 mg SLOW IVP Q4H PRN PRN Reason: Systolic BP > 180 Levothyroxine Sodium (Synthroid) 75 mcg PO 0600 [facility] Last Admin: 05/01/18 06:11 Dose: 75 mcg Loperamide HCl (Imodium) 2 mg PO PRN PRN PRN Reason: Diarrhea/Loose Stools Loratadine (Claritin) 10 mg PO DAILYPRN PRN PRN Reason: Sinus Symptoms Magnesium Hydroxide (Milk Of Magnesium) 30 ml PO DAILYPRN PRN PRN Reason: Constipation Mineral Oil/White Petrolatum (Eucerin Cream) 0 gm TOP BIDPRN PRN PRN Reason: Dry Skin Nitroglycerin (Nitrostat) 0.4 mg SL Q5MIN PRN PRN Reason: Chest Pain Ondansetron HCl (Zofran Odt) 4 mg PO Q6H PRN PRN Reason: Nausea/Vomiting Ondansetron HCl (Zofran) 4 mg IVP Q6H PRN PRN Reason: Nausea/Vomiting Phenol (Chloraseptic [place] 180 Ml Bot) 0 ml PO PRN PRN PRN Reason: Sore Throat Polyethylene Glycol (Miralax) 17 gm PO BID [facility] Last Admin: 05/01/18 08:20 Dose: 17 gm Potassium Chloride (K-Dur) 20 meq PO BID-[facility] Last Admin: 05/01/18 08:17 Dose: 20 meq Senna (Senokot) 2 tab PO HSPRN PRN PRN Reason: Constipation Sodium Chloride ([place] Nasal [place] 0.65%) 0 ml EA NARE QIDPRN PRN PRN Reason: Nasal Congestion Sodium Chloride (Flush - Normal Saline) 10 ml IVF Q12HR [facility] Last Admin: 05/01/18 08:20 Dose: 10 ml Sodium Chloride (Flush - Normal Saline) 10 ml IVF PRN PRN PRN Reason: Saline Flush Zolpidem Tartrate (Ambien) 5 mg PO HSPRN PRN PRN Reason: Insomnia
[2018-05-01] MEDS: Apixaban 2.5 MG TAB PO SCH ×2 (10:17→21:17)
[2018-05-01] MEDS: cefTRIAXone\\ROCEPHIN 1 GM in Sodium Chloride 0.9% 100 ML IVPB SCH (14:09)
[2018-05-01] MEDS: Atorvastatin Calcium 20 MG TAB PO SCH (21:18)
[2018-05-01] MEDS: Famotidine 20 MG TAB PO SCH (21:18)
[2018-05-01] MEDS: Amitriptyline HCl 25 MG TAB PO SCH (21:18)
[2018-05-02] MEDS: Levothyroxine Sodium 75 MCG TAB PO SCH (05:21)
[2018-05-02 06:53] LABS: Hemoglobin 8.5 g/dL (12.0-16.0); Platelet Count 285 thou/uL (130-400)
[2018-05-02 07:36] VITALS: TEMP 97.8
[2018-05-02] MEDS: Gabapentin 300 MG CAP PO SCH (07:49)
[2018-05-02] MEDS: Potassium Chloride 20 MEQ TAB PO SCH (07:49)
[2018-05-02] MEDS: Citalopram 20 MG TAB PO SCH (07:50)
[2018-05-02] MEDS: Apixaban 2.5 MG TAB PO SCH (07:50)
[2018-05-02] MEDS: Carvedilol 6.25 MG TAB PO SCH (07:51)
[2018-05-02] MEDS: Amiodarone 200 MG TAB PO SCH (07:51)
[2018-05-02] MEDS: Polyethylene Glycol 3350 17 GM Packet PO SCH (07:51)
[2018-05-02 14:04] VITALS: BP 113/67
== END 2018-05-02 14:12 | DRG 872 ==
LOC: ERS 11:29 → 2NO 16:32 → T4-B 04-30 16:59
PROVIDERS: ADMIT Internal Medicine; ATTEND Internal Medicine
DX: A40.9 Streptococcal sepsis, unspecified (principal); N17.9 Acute kidney failure, unspecified; N39.0 Urinary tract infection, site not specified; I50.32 Chronic diastolic (congestive) heart failure; I24.8 Other forms of acute ischemic heart disease; I25.10 Atherosclerotic heart disease of native coronary artery without angina pectoris; E03.9 Hypothyroidism, unspecified; K21.9 Gastro-esophageal reflux disease without esophagitis; I73.9 Peripheral vascular disease, unspecified; I11.0 Hypertensive heart disease with heart failure; J45.909 Unspecified asthma, uncomplicated; F41.9 Anxiety disorder, unspecified; F32.9 Major depressive disorder, single episode, unspecified; E78.5 Hyperlipidemia, unspecified; E87.6 Hypokalemia; I48.0 Paroxysmal atrial fibrillation; R53.1 Weakness; R65.20 Severe sepsis without septic shock; G25.3 Myoclonus; I25.2 Old myocardial infarction; Z66 Do not resuscitate; Z79.02 Long term (current) use of antithrombotics/antiplatelets; Z79.82 Long term (current) use of aspirin; Z79.01 Long term (current) use of anticoagulants; Z79.899 Other long term (current) drug therapy; Z95.1 Presence of aortocoronary bypass graft; Z95.810 Presence of automatic (implantable) cardiac defibrillator; Z89.612 Acquired absence of left leg above knee
CPT/HCPCS: 36415; 51701; 70450; 71045; 80048; 80053; 81003; 81015; 82553; 82565; 83690; 83735; 83880; 84484; 85014; 85018; 85025; 85049; 87077; 87086; 87186; 93005; 93306; 94640; 96365; A4216; A4353; G8978-GO-CM; G8978-GP-CL; G8979-GO-CI; G8979-GP-CK; J0696; J3480; J7050; J7620

== ENCOUNTER 2018-05-29 13:21 | Outpatient (CLI) | payer MEDICARE ==
--- NOTE | 2018-05-29 13:48 | RAD ---
PA AND LATERAL CHEST XRAY: DATE: 05/29/18. HISTORY: Dyspnea. FINDINGS: Triple-lead left subclavian AICD device is noted in place. 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 Coronary artery stent overlies the left cardiac border. The cardiac silhouette is enla rged. Pulmonary vasculature is within normal limits. Vascular calcification in the thoracic aorta. 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 IMPRESSION: 1. no acute cardiopulmonary process. 2. Cardiomegaly. POS: [facility]
== END 2018-05-29 13:22 | disposition home or self-care (01) ==
LOC: RAD 13:21
PROVIDERS: ATTEND Internal Medicine Critical Care Medicine
DX: R06.00 Dyspnea, unspecified (principal); I51.7 Cardiomegaly
CPT/HCPCS: 71046

== ENCOUNTER 2018-06-26 05:59 | Day surgery (SDC) | payer MEDICARE ==
[2018-06-25 09:01] VITALS: BMI 24.1
[2018-06-26 07:18] LABS: #Basophils 0.1 thou/uL (0.0-0.2); #Eosinphils 0.4 thou/uL (0.0-0.7); #Lymphocytes 1.3 thou/uL (1.20-3.40); #Monocytes 0.7 thou/uL (0.11-0.59); #Neutrophils 4.7 thou/uL (1.40-6.50); %Basophils 0.8 % (0.0-1.0); %Eosinophils 5.6 % (0.0-10.0); %Lymphocytes 18.5 % (21.0-51.0); %Monocytes 9.2 % (0.0-10.0); %Neutrophils 65.8 % (42.0-75.0); Hemoglobin 12.1 g/dL (12.0-16.0); Mean Corpuscular HGB CONC 29.3 g/dL (32.0-36.0); Mean Corpuscular Hemoglobin 22.4 pg (27.0-31.0); Mean Corpuscular Volume 76.6 fL (78.0-98.0); Mean Platelet Volume 10.4 fL (7.4-10.4); Platelet Count 185 thou/uL (130-400); RBC Distribution Width 19.8 % (11.5-14.5); Red Blood Cell (RBC) Count 5.42 mill/uL (4.20-5.40); White Blood Cell (WBC) Count 7.5 thou/uL (4.8-10.8)
[2018-06-26 07:30] LABS: Anion Gap 15 mmol/L (10-20); BUN (Urea Nitrogen) 27 mg/dL (9.8-20.1); Calc. Creatinine Clearance 31 mL/min (70-130); Calcium 9.5 mg/dL (7.8-10.44); Carbon Dioxide 28 mmol/L (23-31); Chloride 100 mmol/L (98-107); Estimated GFR-MDRD 43; Glucose 115 mg/dL (83-110); Sodium 139 mmol/L (136-145)
[2018-06-26] MEDS ORDERED: PROPOFOL 20 ML ONE (07:42)
--- NOTE | 2018-06-27 23:33 | ECHO ---
This is an 87-year-old woman with paroxysmal atrial fibrillation. The patient was taken to the PACU, the patient was sedated by anesthesiology. Transesophageal probe w as placed in the distal esophagus and stomach. Echocardiogram images were obtained. Transesophageal probe was removed. FINDINGS 1. Normal left ventricular systolic function. 2. Normal mitral and aortic valves. 3. Moderate mitral regurgitation. 4. Mild tricuspid regurgitation. 5. No thrombus noted in the left atrium or left atrial appendage. 6. A pacemaker wire is noted in the right ventricle. 7. Atherosclerotic debris in the descending aorta. IMPRESSION: No formed thrombus in the left atrium or left atrial appendage. CC: Sharlene Mg M.D.
--- NOTE | 2018-06-27 23:38 | OP ---
PROCEDURE: Cardioversion internal. The patient underwent a transesophageal echocardiogram showing no evidence of any intracardiac thrombus. Subsequently, she was given 35 joules synchronized energy through the AICD to the atrium and converted to sinus rhythm. The pacemaker was programmed to try to avoid ventricular pacing. Currently, she is atrial pacing, ventricular sensing. The patient will be released home. The medicines will be identical to what she came in on. The only change is we will stop diltiazem in view of her congestive heart failure. We will see her back in a couple weeks. She will continue amiodarone 200 mg a day and apixaban as well as carvedilol. MTDD
== END 2018-06-26 08:50 | disposition home or self-care (01) ==
LOC: CCL 05:59
PROVIDERS: ATTEND Internal Medicine Cardiovascular Disease
PROC: 5A2204Z Restoration of Cardiac Rhythm, Single (ICD-10-PCS; principal; 2018-06-26)
PROC: B24BZZ4 Ultrasonography of Heart with Aorta, Transesophageal (ICD-10-PCS; 2018-06-26)
DX: I48.0 Paroxysmal atrial fibrillation (principal); I48.2 Chronic atrial fibrillation; I08.1 Rheumatic disorders of both mitral and tricuspid valves; I70.0 Atherosclerosis of aorta; I11.0 Hypertensive heart disease with heart failure; I50.32 Chronic diastolic (congestive) heart failure; E78.5 Hyperlipidemia, unspecified; I73.9 Peripheral vascular disease, unspecified; I25.5 Ischemic cardiomyopathy; M19.90 Unspecified osteoarthritis, unspecified site; I25.10 Atherosclerotic heart disease of native coronary artery without angina pectoris; E78.00 Pure hypercholesterolemia, unspecified; Z79.01 Long term (current) use of anticoagulants; Z79.899 Other long term (current) drug therapy; Z95.1 Presence of aortocoronary bypass graft; Z95.810 Presence of automatic (implantable) cardiac defibrillator
CPT/HCPCS: 80048; 85025; 92960; 93312; J2704

== ENCOUNTER 2018-11-03 12:06 | Outpatient (CLI) | payer MEDICARE ==
[2018-11-03 13:34] LABS: #Basophils 0.1 thou/uL (0.0-0.2); #Eosinphils 0.4 thou/uL (0.0-0.7); #Lymphocytes 1.5 thou/uL (1.20-3.40); #Monocytes 0.5 thou/uL (0.11-0.59); #Neutrophils 4.3 thou/uL (1.40-6.50); %Eosinophils 6.4 % (0.0-10.0); %Lymphocytes 22.4 % (21.0-51.0); %Monocytes 7.8 % (0.0-10.0); %Neutrophils 62.3 % (42.0-75.0); Hemoglobin 12.5 g/dL (12.0-16.0); Mean Corpuscular HGB CONC 31.3 g/dL (32.0-36.0); Mean Corpuscular Hemoglobin 25.9 pg (27.0-31.0); Mean Corpuscular Volume 82.9 fL (78.0-98.0); Mean Platelet Volume 7.4 fL (7.4-10.4); Platelet Count 264 thou/uL (130-400); RBC Distribution Width 15.4 % (11.5-14.5); Red Blood Cell (RBC) Count 4.81 mill/uL (4.20-5.40); White Blood Cell (WBC) Count 6.8 thou/uL (4.8-10.8)
[2018-11-03 13:36] LABS: INR-International Normal Ratio 1.5; PTT 37.9 SEC (22.9-36.1); Prothrombin Time 18.1 SEC (12.0-14.7)
[2018-11-03 13:59] LABS: Anion Gap 13 mmol/L (10-20); BUN (Urea Nitrogen) 21 mg/dL (9.8-20.1); Calc. Creatinine Clearance 0 mL/min (70-130); Calcium 9.8 mg/dL (7.8-10.44); Carbon Dioxide 29 mmol/L (23-31); Chloride 102 mmol/L (98-107); Estimated GFR-MDRD 44; Glucose 89 mg/dL (83-110); Potassium 3.4 mmol/L (3.5-5.1); Sodium 141 mmol/L (136-145)
== END 2018-11-03 12:07 | disposition home or self-care (01) ==
LOC: LABBT 12:06
PROVIDERS: ATTEND Internal Medicine Cardiovascular Disease
DX: Z01.812 Encounter for preprocedural laboratory examination (principal); I48.91 Unspecified atrial fibrillation
CPT/HCPCS: 80048; 85025; 85610; 85730

== ENCOUNTER → 2018-11-05 | Day surgery (SDC) | payer MEDICARE ==
[2018-11-03 12:44] VITALS: BMI 25.6
[~2018-11-05] MED LIST: PROPOFOL 20 ML ONE; PROPOFOL 200 MG/20 ML VIAL ONE
[2018-11-05 06:47] LABS: #Basophils 0.1 thou/uL (0.0-0.2); #Eosinphils 0.4 thou/uL (0.0-0.7); #Lymphocytes 1.4 thou/uL (1.20-3.40); #Monocytes 0.6 thou/uL (0.11-0.59); #Neutrophils 3.7 thou/uL (1.40-6.50); %Basophils 1.6 % (0.0-1.0); %Eosinophils 6.4 % (0.0-10.0); %Lymphocytes 23.2 % (21.0-51.0); %Monocytes 8.9 % (0.0-10.0); %Neutrophils 59.9 % (42.0-75.0); Hemoglobin 12.7 g/dL (12.0-16.0); Mean Corpuscular HGB CONC 30.2 g/dL (32.0-36.0); Mean Corpuscular Hemoglobin 25.1 pg (27.0-31.0); Mean Corpuscular Volume 83.2 fL (78.0-98.0); Mean Platelet Volume 7.1 fL (7.4-10.4); Platelet Count 272 thou/uL (130-400); RBC Distribution Width 15.5 % (11.5-14.5); Red Blood Cell (RBC) Count 5.05 mill/uL (4.20-5.40); White Blood Cell (WBC) Count 6.2 thou/uL (4.8-10.8)
[2018-11-05 06:55] LABS: INR-International Normal Ratio 1.6; PTT 38.2 SEC (22.9-36.1); Prothrombin Time 18.9 SEC (12.0-14.7)
[2018-11-05 07:06] LABS: Anion Gap 15 mmol/L (10-20); BUN (Urea Nitrogen) 23 mg/dL (9.8-20.1); Calc. Creatinine Clearance 31 mL/min (70-130); Calcium 9.5 mg/dL (7.8-10.44); Carbon Dioxide 27 mmol/L (23-31); Chloride 102 mmol/L (98-107); Estimated GFR-MDRD 40; Glucose 107 mg/dL (83-110); Potassium 3.5 mmol/L (3.5-5.1); Sodium 140 mmol/L (136-145)
--- NOTE | 2018-11-05 17:40 | ECHO ---
TRANSESOPHAGEAL ECHOCARDIOGRAM: DATE OF PROCEDURE: 11/05/18 INDICATION: 87-year-old woman with paroxysmal atrial fibrillation. DESCRIPTION OF PROCEDURE: The patient was taken to the PACU. The patient was sedated by anesthesiology. A transesophageal probe was placed in the distal esophagus and stomach. Echocardiographic images were obtained. The transesophageal probe was removed. FINDINGS: 1. Mild decrease in left ventricular systolic function. 2. Biatrial enlargement. 3. Aortic valve leaflets are thickened. 4. Mild mitral regurgitation. 5. Mild tricuspid regurgitation. 6. Pacemaker wire noted in the right ventricle. 7. No thrombus noted in the left atrium or left atrial appendage. 8. Atherosclerotic debris in the descending aorta. IMPRESSION: No formed thrombus in the left atrium or left atrial appendage.
--- NOTE | 2018-11-05 17:44 | OP ---
CARDIOLOGY PROCEDURE NOTE: Date: 11/05/18 PROCEDURE: Cardioversion using defibrillator (internal). PROCEDURE DETAILS: The patient is brought to the recovery area in the fasting state. The transesophageal echo showed no evidence of any intracardiac thrombi. She was given 35 joules direct current energy, synchronized, by the defibrillator, and converted to sinus rhythm. The patient is pacing the ventricle. The AV delay is approximately 400 msec. CONCLUSION: 1. Successful cardioversion. 2. Currently pacing the ventricle. The pacemaker defibrillator is set to have AV search intermittent ly to see if she can avoid ventricular pacing.
== END ==
LOC: CCL 06:22
PROVIDERS: ATTEND Internal Medicine Cardiovascular Disease
PROC: 5A2204Z Restoration of Cardiac Rhythm, Single (ICD-10-PCS; principal; 2018-11-05)
PROC: B24BZZ4 Ultrasonography of Heart with Aorta, Transesophageal (ICD-10-PCS; 2018-11-05)
DX: I48.0 Paroxysmal atrial fibrillation (principal); I70.0 Atherosclerosis of aorta; I08.1 Rheumatic disorders of both mitral and tricuspid valves; I25.10 Atherosclerotic heart disease of native coronary artery without angina pectoris; M19.90 Unspecified osteoarthritis, unspecified site; E03.9 Hypothyroidism, unspecified; I25.5 Ischemic cardiomyopathy; E78.5 Hyperlipidemia, unspecified; I11.0 Hypertensive heart disease with heart failure; I50.32 Chronic diastolic (congestive) heart failure; Z79.01 Long term (current) use of anticoagulants; Z79.899 Other long term (current) drug therapy; Z95.5 Presence of coronary angioplasty implant and graft; Z95.810 Presence of automatic (implantable) cardiac defibrillator; Z95.820 Peripheral vascular angioplasty status with implants and grafts
CPT/HCPCS: 36415; 80048; 85025; 85610; 85730; 92960; 93312; J2704